=== PATIENT | male | born 1945 | race Caucasian/White ===

== ENCOUNTER 2017-06-26 05:47 | Day surgery (SDC) | payer BC ==
[2017-06-26] MEDS ORDERED: Sodium Chloride 0.9% 10 ML ONE (06:25)
[2017-06-26] MEDS ORDERED: Thrombin 5000 UNITS/5 ML VIAL ONE ×2 (06:25→10:49)
[2017-06-26 06:44] LABS: #Basophils 0.1 thou/uL (0.0-0.2); #Eosinphils 0.2 thou/uL (0.0-0.7); #Lymphocytes 2.2 thou/uL (1.20-3.40); #Monocytes 0.4 thou/uL (0.11-0.59); #Neutrophils 3.3 thou/uL (1.40-6.50); %Basophils 1.1 % (0.0-1.0); %Eosinophils 2.8 % (0.0-10.0); %Lymphocytes 35.6 % (21.0-51.0); %Monocytes 7.1 % (0.0-10.0); Hematocrit 37.1 % (42.0-52.0); Mean Platelet Volume 9.3 fL (7.4-10.4); White Blood Cell (WBC) Count 6.2 thou/uL (4.8-10.8)
[2017-06-26 06:49] LABS: PTT 28.4 SEC (22.9-36.1); Prothrombin Time 13.7 SEC (12.0-14.7)
[2017-06-26 07:00] LABS: Anion Gap 13 mmol/L (10-20); BUN (Urea Nitrogen) 30 mg/dL (8.4-25.7); Calc. Creatinine Clearance 89 mL/min (70-130); Calcium 9.2 mg/dL (7.8-10.44); Carbon Dioxide 23 mmol/L (23-31); Chloride 111 mmol/L (98-107); Estimated GFR-MDRD 44
[2017-06-26] MEDS ORDERED: Fentanyl 100 MCG/2 ML VIAL ONE ×2 (07:23→12:47)
[2017-06-26] MEDS ORDERED: Glycopyrrolate 0.2 MG/ML 5 ML SYRINGE ONE (07:41)
[2017-06-26] MEDS ORDERED: Propofol 200 MG/20 ML VIAL ONE (07:41)
[2017-06-26] MEDS ORDERED: ePHEDrine/0.9% NaCl/PF SYRINGE 50 mg/10 ml ONE (07:41)
[2017-06-26] MEDS ORDERED: Dexamethasone 20 MG/5 ML VIAL ONE (07:41)
[2017-06-26] MEDS ORDERED: PHENYLEPHRINE-NS 100 MCG/ML 10 ML SYRINGE ONE (07:41)
[2017-06-26] MEDS ORDERED: Ondansetron HCl/PF 4 MG/2 ML Vial ONE (07:41)
[2017-06-26] MEDS ORDERED: Lidocaine 2% PF 10 ML AMP (For Epidural Use) ONE (07:41)
--- NOTE | 2017-06-26 10:01 | EKG ---
Test Reason : PREOP Blood Pressure : / mmHG Vent. Rate : 052 BPM Atrial Rate : 052 BPM P-R Int : 242 ms QRS Dur : 122 ms QT Int : 462 ms P-R-T Axes : 064 -20 -10 degrees QTc Int : 429 ms Sinus bradycardia with 1st degree A-V block RSR' or QR pattern in V1 suggests right ventricular conduction delay Left ventricular hypertrophy with QRS widening Nonspecific T wave abnormality Abnormal ECG No previous ECGs available Confirmed by LINDA BECKFORD ([id number]) on 06/26/2017 10:01:28 AM Referred By: ZOE Confirmed By:LINDA BECKFORD
[2017-06-26] MEDS ORDERED: Ondansetron HCl/PF 4 MG/2 ML Vial IVP PRN ×2 (11:56→19:16)
[2017-06-26] MEDS ORDERED: Promethazine HCl 25 MG/ML VIAL SLOW IVP PRN (11:56)
[2017-06-26] MEDS ORDERED: Promethazine HCl 25 MG/ML VIAL IM PRN ×2 (11:56→12:20)
[2017-06-26] MEDS ORDERED: Meperidine HCl/PF 25 MG/ML VIAL SLOW IVP PRN (11:56)
[2017-06-26] MEDS ORDERED: HYDROmorphone 2 MG/ML VIAL SLOW IVP PRN (11:56)
[2017-06-26] MEDS ORDERED: Milk Of Magnesia 30 ML UDCUP PO PRN (12:20)
[2017-06-26] MEDS ORDERED: Morphine Sulfate 2 MG/ML SYRINGE SLOW IVP PRN (12:20)
[2017-06-26] MEDS ORDERED: Fleet Enema 133 ML BOT PR PRN (12:20)
[2017-06-26] MEDS ORDERED: Acetaminophen 325 MG TAB PO PRN (12:20)
[2017-06-26] MEDS ORDERED: Acetaminophen/Codeine 30-300mg Tablet PO PRN (12:20)
[2017-06-26] MEDS ORDERED: Bisacodyl 10 MG SUPP PR PRN (12:20)
[2017-06-26] MEDS ORDERED: tiZANidine HCl 4 MG TAB PO PRN (12:20)
[2017-06-26] MEDS ORDERED: traMADol HCl 50 MG TAB PO PRN (12:20)
[2017-06-26] MEDS ORDERED: Mag-Al 1200 mg/1200 mg/30 ML UDCUP PO PRN (12:20)
[2017-06-26 14:32] VITALS: BMI 52.4
[2017-06-26] MEDS: Sodium Chloride 0.9% 1,000 ML IV SCH (14:55)
--- NOTE | 2017-06-26 17:35 | OP ---
OR: 11 WOUND TYPE: Type 1 wound. SURGEON: Raj Chiu M.D. CARD BRUSHER: Juan Newell PA-C. 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 POSTPROCEDURE DIAGNOSES: Multilevel lumbar stenosis with epidural lipomatosis and lumbar synovial c yst. COMORBIDITIES: Obesity, diabetes mellitus, renal insufficiency, coronary artery disease. PROCEDURES: 1. L1-L2, L2-L3, L3-L4 laminectomies, partial facetectomies and foraminotomies. 2. L5-S1 laminectomy, partial facetectomy, and foraminotomies. 3. L4-L5 laminectomy for removal of synovial cyst. PROCEDURE IN DETAIL: After informed consent was obtained from the patient, the patient brought to O R 11. Proper patient pause and identification was carried out. She was positioned prone on the ope rating room table and all appropriate points were padded. Midline linear patel was made from L1 all the way down to S1. Despite the patient's body habitus, we were able to get satisfactory padding an d protection of pressure points. This area was sterilely cleansed, prepared, and draped and proper patient pause and identification was carried out. The wound was then opened with a combination of s harp, monopolar and blunt dissection, and the L1, L2, L3, L4, L5, and S1 dorsal spines and lamina we re exposed. Localization film confirmed our area of interest. We then performed L1, L2, L3 and L4 laminectomies, partial facetectomies and foraminotomies. We also performed L5-S1 laminectomies, par tial facetectomies and foraminotomies. We then performed an L4-L5 laminectomy, partial facetectomy, and foraminotomies with removal of the left greater than right synovial cyst. We are satisfied wit h our decompression. There was no spinal fluid leak. Hemostasis was a bit challenging given the amndeep valenzuela's body habitus and the vascularity at times of the epidural lipomatosis, but I was satisfied w ith the hemostasis. There was no spinal fluid leak. Copious irrigation occurred throughout. The w ound was then closed over a drain. The patient then emerged from anesthesia.
[2017-06-26] MEDS ORDERED: Ondansetron ODT 4 MG TAB PO PRN (19:16)
[2017-06-26] MEDS ORDERED: HumaLOG 300 UNITS/3 ML VIAL SC PRN ×2 (19:16)
[2017-06-26] MEDS ORDERED: Dextrose 50% Abboject 50 ML SYRINGE SLOW IVP PRN (19:16)
[2017-06-26] MEDS ORDERED: Dextrose 5% in Water 1,000 ML IV PRN (19:16)
[2017-06-26] MEDS ORDERED: cloNIDine HCl 0.1 MG TAB PO PRN (19:16)
--- NOTE | 2017-06-26 19:16 | PDOC.PN ---
- Subjective Encounter Start Date: 06/26/17 Encounter Start Time: 19:00 Subjective: Consulted for HTN mgmt post L-spine laminectomy. Post-op pain noted -: with associated elevated BP. Reviewed all meds, hx and labs. - Objective MAR Reviewed: Yes Vital Signs & Weight: Vital Signs (12 hours) Temp Pulse Resp BP Pulse Ox 06/26/17 15:11 97.6 F 52 L 16 161/70 H 96 06/26/17 14:47 97.4 F L 51 L 16 06/26/17 14:10 97.4 F L 51 L 16 187/78 H 96 Weight Weight 325 lb I&O: 06/25/17 06/26/17 06/27/17 06:59 06:59 06:59 Intake Total 480 Output Total 50 Balance 430 Result Diagrams: 06/26/17 06:31 06/26/17 06:31 Additional Labs: Accuchecks 06/26/17 17:26 POC Glucose 251 H EKG Reviewed by me: Yes (06/26/17 - Sinus bradycardia, no acute changes) Phys Exam - Physical Examination Constitutional: NAD HEENT: PERRLA, oral pharynx no lesions Neck: no JVD, supple Respiratory: no wheezing, clear to auscultation bilateral Cardiovascular: RRR Gastrointestinal: soft, non-tender, no distention, positive bowel sounds Musculoskeletal: no edema, pulses present Neurological: normal sensation, moves all 4 limbs Psychiatric: A&O x 3 Deviation from normal: surgical dressing in place L-spine, OLGA drain in place Skin: normal turgor, cap refill <2 seconds Dx/Plan (1) HTN (hypertension) Code(s): I10 - ESSENTIAL (PRIMARY) HYPERTENSION Status: Chronic Qualifiers: Hypertension type: essential hypertension Qualified Code(s): I10 - Essential (primary) hypertension Comment: Stable currently, resume home BP regimen with Olmesartan, Lasix and Norvasc, PRN Hydralazine and Clonidine (2) DM II (diabetes mellitus, type II), controlled Code(s): E11.9 - TYPE 2 DIABETES MELLITUS WITHOUT COMPLICATIONS Status: Chronic Comment: Resume home Levemir, ISS, accuchecks (3) CKD (chronic kidney disease) stage 3, GFR 30-59 ml/min Code(s): N18.3 - CHRONIC KIDNEY DISEASE, STAGE 3 (MODERATE) Status: Chronic Comment: Avoid nephrotoxic meds and contrast media, repeat creatinine in am (4) Status post lumbar laminectomy Code(s): Z98.890 - OTHER SPECIFIED POSTPROCEDURAL STATES Status: Acute Comment: Pain control, DVT ppx, PT - Plan PT/OT, school social worker, respiratory therapy, incentive spirometry, DVT proph w/ SCDs Stable currently -: Resume home BP regimen -: PRN Hydralazine and Clonidine -: ISS for reflexive glucose control -: AM lab: BMP, H/H * Thank you for the consult, will continue to follow with primary service.
[2017-06-26] MEDS ORDERED: Non-Formulary Item 1 EACH (Insulin Glargine,Hum.Rec.Anlog 30 UNITS) SC SCH (21:00)
[2017-06-26] MEDS: Pioglitazone HCl 45 MG TAB PO SCH (21:04)
[2017-06-26] MEDS: Atorvastatin Calcium 20 MG TAB PO SCH (21:04)
[2017-06-26] MEDS: Fenofibrate Nanocrystallized 145 MG TAB PO SCH (21:04)
[2017-06-26] MEDS: Insulin Detemir 100 UNITS/ML 30 UNITS in Pre-Filled Syringe SC SCH (21:05)
[2017-06-26] MEDS: HYDROcodone/Acetaminophen 7.5/325 mg Tablet PO PRN (21:06)
[2017-06-27] MEDS: Sodium Chloride 0.9% 1,000 ML IV SCH ×2 (02:39→17:12)
[2017-06-27] MEDS: HYDROcodone/Acetaminophen 7.5/325 mg Tablet PO PRN ×5 (03:14→20:40)
[2017-06-27 04:31] LABS: Hematocrit 32.7 % (42.0-52.0)
[2017-06-27 04:50] LABS: Anion Gap 13 mmol/L (10-20); BUN (Urea Nitrogen) 34 mg/dL (8.4-25.7); Calc. Creatinine Clearance 80 mL/min (70-130); Calcium 8.8 mg/dL (7.8-10.44); Carbon Dioxide 23 mmol/L (23-31); Chloride 108 mmol/L (98-107); Estimated GFR-MDRD 37
[2017-06-27] MEDS: Alogliptin Benzoate 25 MG TABLET PO SCH (08:59)
[2017-06-27] MEDS ORDERED: AMLODIPINE BES PO SCH (09:00)
[2017-06-27] MEDS: Nebivolol HCl 5 MG TAB PO SCH (09:00)
[2017-06-27] MEDS ORDERED: OLMESARTAN MED PO SCH (09:00)
[2017-06-27] MEDS: Furosemide 40 MG TAB PO SCH (09:01)
[2017-06-27] MEDS: glipiZIDE 5 MG TAB PO SCH (09:01)
--- NOTE | 2017-06-27 09:17 | PRG ---
DATE OF SERVICE: 06/27/2017 Mr. Cooper is postoperative day 1 from multilevel lumbar decompression and lumbar synovial cystectom y. His leg pain has resolved. As expected, he has low back pain. I did discuss with him his body habitus and the need to reduce his body weight to maximize his outcome both in the short and long-te rm. He has good strength in his lower extremities. His drain output has been over 100 mL. His hem oglobin is just over 10 today. We will mobilize him today.
--- NOTE | 2017-06-27 12:44 | PDOC.PN ---
- Subjective Encounter Start Date: 06/27/17 Encounter Start Time: 12:15 Subjective: f/u for HTN. Overall BP trend is stable. No new complaints other than -: back pain. - Objective MAR Reviewed: Yes Vital Signs & Weight: Vital Signs (12 hours) Temp Pulse Pulse Resp BP BP Pulse Ox 06/27/17 09:50 60 164/72 H 06/27/17 09:01 97.2 F L 56 L 20 06/27/17 07:38 97.2 F L 56 L 20 138/65 98 06/27/17 03:10 97.9 F 60 20 138/66 98 Weight Weight 325 lb I&O: 06/26/17 06/27/17 06/28/17 06:59 06:59 06:59 Intake Total 1240 Output Total 150 30 Balance 1090 -30 Result Diagrams: 06/27/17 03:43 06/27/17 03:43 Additional Labs: Accuchecks 06/27/17 06/27/17 06/26/17 11:03 06:17 21:03 POC Glucose 162 H 182 H 238 H 06/26/17 17:26 POC Glucose 251 H EKG Reviewed by me: Yes (Tele - SR in 70's) Phys Exam - Physical Examination Constitutional: NAD HEENT: PERRLA, oral pharynx no lesions Neck: no JVD, supple Respiratory: no wheezing, clear to auscultation bilateral Cardiovascular: RRR Gastrointestinal: soft, non-tender, no distention, positive bowel sounds Musculoskeletal: no edema, pulses present Neurological: normal sensation, moves all 4 limbs Psychiatric: A&O x 3 Skin: normal turgor, cap refill <2 seconds Dx/Plan (1) HTN (hypertension) Code(s): I10 - ESSENTIAL (PRIMARY) HYPERTENSION Status: Chronic Qualifiers: Hypertension type: essential hypertension Qualified Code(s): I10 - Essential (primary) hypertension Comment: Stable currently, resume home BP regimen with Olmesartan, Lasix and Norvasc, PRN Hydralazine and Clonidine (2) DM II (diabetes mellitus, type II), controlled Code(s): E11.9 - TYPE 2 DIABETES MELLITUS WITHOUT COMPLICATIONS Status: Chronic Comment: Resume home Levemir, ISS, accuchecks (3) CKD (chronic kidney disease) stage 3, GFR 30-59 ml/min Code(s): N18.3 - CHRONIC KIDNEY DISEASE, STAGE 3 (MODERATE) Status: Chronic Comment: Avoid nephrotoxic meds and contrast media, repeat creatinine in am (4) Status post lumbar laminectomy Code(s): Z98.890 - OTHER SPECIFIED POSTPROCEDURAL STATES Status: Acute Comment: Pain control, DVT ppx, PT - Plan PT/OT, out of bed/ambulate, DVT proph w/SCDs Stable overall -: continue home BP regimen -: Avoid nephrotoxic meds and contrast media -: Mobilize with PT -: Pain control * Will sign off, call prn
[2017-06-27] MEDS: Atorvastatin Calcium 20 MG TAB PO SCH (20:40)
[2017-06-27] MEDS: Pioglitazone HCl 45 MG TAB PO SCH (20:40)
[2017-06-27] MEDS: Fenofibrate Nanocrystallized 145 MG TAB PO SCH (20:40)
[2017-06-27] MEDS: Insulin Detemir 100 UNITS/ML 30 UNITS in Pre-Filled Syringe SC SCH (22:50)
[2017-06-28] MEDS: HYDROcodone/Acetaminophen 7.5/325 mg Tablet PO PRN ×3 (02:38→10:22)
[2017-06-28 08:25] VITALS: BP 142/64; TEMP 98.7
[2017-06-28] MEDS ORDERED: Nitrofurantoin Monohyd/M-Cryst 100 MG CAP PO SCH (09:00)
[2017-06-28] MEDS: Alogliptin Benzoate 25 MG TABLET PO SCH (09:01)
[2017-06-28] MEDS: Furosemide 40 MG TAB PO SCH (09:02)
[2017-06-28] MEDS: glipiZIDE 5 MG TAB PO SCH (09:02)
[2017-06-28] MEDS: Nebivolol HCl 5 MG TAB PO SCH (09:02)
--- NOTE | 2017-06-28 14:19 | PRG ---
DATE OF SERVICE: 06/28/2017 SUBJECTIVE: Mr. Cooper is postoperative day #2 multilevel lumbar laminectomy and synovial cystectom y. He has no leg pain. He is doing well in regards to his mobilization with some improvement in hi s back pain related to the surgery. I am pleased with how Mr. Cooper is doing. His drain output barragan s diminished. Neurologically, he continues to do well. I will dismiss him. We went over postopera tive issues in followup.
== END 2017-06-28 11:04 | disposition home or self-care (01) ==
LOC: SDC 05:47 → 2SW 12:18 → SDC 06-28 11:04
PROVIDERS: ATTEND Surgery
PROC: 00NY0ZZ Release Lumbar Spinal Cord, Open Approach (ICD-10-PCS; principal; 2017-06-28)
PROC: 0QB00ZZ Excision of Lumbar Vertebra, Open Approach (ICD-10-PCS; principal; 2017-06-28)
PROC: 01NB0ZZ Release Lumbar Nerve, Open Approach (ICD-10-PCS; principal; 2017-06-28)
DX: M48.06 Spinal stenosis, lumbar region (principal); M71.38 Other bursal cyst, other site; I12.9 Hypertensive chronic kidney disease with stage 1 through stage 4 chronic kidney disease, or unspecified chronic kidney disease; E11.22 Type 2 diabetes mellitus with diabetic chronic kidney disease; N18.3 Chronic kidney disease, stage 3 (moderate); E66.9 Obesity, unspecified; N28.9 Disorder of kidney and ureter, unspecified; Z68.43 Body mass index [BMI] 50.0-59.9, adult; Z79.4 Long term (current) use of insulin; Z79.82 Long term (current) use of aspirin; Z79.2 Long term (current) use of antibiotics; Z79.899 Other long term (current) drug therapy; Z99.89 Dependence on other enabling machines and devices; Z90.49 Acquired absence of other specified parts of digestive tract; Z90.89 Acquired absence of other organs
CPT/HCPCS: 36415; 36416; 76001; 80048; 85014; 85018; 85025; 85049; 85610; 85730; 90471; 90732; 93005; 93010; 96374; A4216; G0009; G8978-GP-CL; G8979-GP-CJ; J0131; J1100; J1170; J1815; J2001; J2270; J2405; J2704; J3010; J3370; J3490; Q0162

== ENCOUNTER 2019-02-27 10:44 | Inpatient (IN) | payer OTHER, MEDICARE ==
--- NOTE | 2019-02-27 11:56 | RAD ---
Exam: Chest 2 views HISTORY:Dyspnea Comparison: None FINDINGS: Lungs: No masses or consolidation. Cardiac silhouette:Enlarged cardiac silhouette Pulmonary vessels: Mild engorgement, centrally Pleural Spaces: Clear Pneumothorax: None Osseous abnormalities: None of acuity. IMPRESSION: CHF
[2019-02-27 12:02] LABS: Hemoglobin 12.2 g/dL (14.0-18.0); Mean Corpuscular HGB CONC 32.7 g/dL (32.0-36.0); Mean Corpuscular Hemoglobin 31.2 pg (27.0-31.0); Mean Corpuscular Volume 95.2 fL (78.0-98.0); Mean Platelet Volume 9.7 fL (7.4-10.4); Platelet Count 184 thou/uL (130-400); RBC Distribution Width 13.1 % (11.5-14.5); Red Blood Cell (RBC) Count 3.93 mill/uL (4.70-6.10)
[2019-02-27 12:11] LABS: ALT (SGPT) 19 U/L (8-55); AST (SGOT) 25 U/L (5-34); Albumin 3.6 g/dL (3.4-4.8); Alkaline Phosphatase 41 U/L (40-150); Anion Gap 14 mmol/L (10-20); BUN (Urea Nitrogen) 21 mg/dL (8.4-25.7); Bilirubin, Total 0.7 mg/dL (0.2-1.2); Calc. Creatinine Clearance 0 mL/min (70-130); Calcium 9.5 mg/dL (7.8-10.44); Carbon Dioxide 23 mmol/L (23-31); Chloride 109 mmol/L (98-107); Estimated GFR-MDRD 50; Globulin 2.8 g/dL (2.4-3.5); Glucose 174 mg/dL (83-110); Potassium 4.6 mmol/L (3.5-5.1); Protein, Total 6.4 g/dL (5.8-8.1); Sodium 141 mmol/L (136-145)
[2019-02-27 12:12] LABS: Band 2 % (5-11); Eosinophils 4 % (0-10); Lymphocytes 39 % (21-51); MDiff Complete? YES; Monocytes 3 % (0-10); Neutrophil 49 % (42-75); RBC Morphology Normal; Reactive Lymphocytes 1 % (0-10); White Blood Cell (WBC) Count 5.8 thou/uL (4.8-10.8)
[2019-02-27] MEDS ORDERED: Nitroglycerin 2% Ointment 1 INCH/1 GM Packet ONE (13:13)
[2019-02-27] MEDS ORDERED: Furosemide 40 MG/4 ML VIAL ONE (13:13)
[2019-02-27] MEDS ORDERED: Dextrose 5% in Water 1,000 ML IV PRN (13:39)
[2019-02-27] MEDS ORDERED: Nitroglycerin 0.4 MG TAB (25 Tab Bottle) PO PRN (13:39)
[2019-02-27] MEDS ORDERED: Dextrose 50% Abboject 50 ML SYRINGE SLOW IVP PRN (13:39)
[2019-02-27] MEDS ORDERED: Aspirin 325 mg Enteric Coated Tablet PO SCH (14:00)
[2019-02-27] MEDS ORDERED: hydrALAZINE 20 MG/ML VIAL ONE (14:14)
--- NOTE | 2019-02-27 14:28 | HP ---
PRIMARY CARE PROVIDER: Dr. Edin Petty. HISTORY OF PRESENT ILLNESS: The patient referred to [facility] by PCP. The patient had shortness of breath this morning. No orthopnea. He has pressure in his chest with walking goes away after 5 to 10 minutes of rest, started about 24 hours ago. He has shortness of breath with a tightness, but no sweats or nausea. PAST MEDICAL HISTORY: Pertinent for hypertension, diabetes mellitus type 2, and dyslipidemia. MEDICATIONS: He takes: 1. Glipizide 5 b.i.d. 2. Protonix 40 a day. 3. Amlodipine/olmesartan 5/20 half tablet daily. 4. Onglyza 2.5 mg a day. 5. Lasix 40 mg a day. 6. Bystolic 10 mg a day. 7. Pioglitazone 45 mg a day. 8. Lipitor 20 mg a day. 9. Fenofibrate 150 mg a day. 10. Levemir 44 units at bedtime. 11. Aspirin 81 mg a day. ALLERGIES: NO MEDICAL ALLERGIES. PAST SURGICAL HISTORY: L-spine surgery 2 years ago, cholecystectomy in the distant past, tonsillectomy 200/85. FAMILY HISTORY: Mother is , had atrial fib and diabetes late in life. Father is , had diabetes late in life. . at bedside. Full code status. is surrogate decision maker. No tobacco. Very occasional alcohol. REVIEW OF SYSTEMS: GENERAL: No headaches, dizziness, or fainting. EYES: No double vision, blurred vision, or flashing lights. EAR, NOSE, AND THROAT: No ear pain or drainage. No nasal bleeding. No trouble swallowing. CARDIAC: See present illness. RESPIRATIONS: No cough, wheezing, or asthma. GASTROINTESTINAL: Occasional loose stools. No nausea, vomiting, abdominal pain , or melena. GENITOURINARY: No hematuria or dysuria. MUSCULOSKELETAL: His legs swell a bit in the ankles. No pains in his muscles or joints. NEUROLOGIC: No strokes seizures or focal weakness. PSYCHIATRIC: No anxiety or depression. HEME/LYMPH: No tender or swollen lymph nodes in his neck, arms, or groin. SKIN: He bruises easily. No rash. PHYSICAL EXAMINATION: GENERAL: He is alert, very pleasant gentleman, in no distress, lying there, room air sat 93% to 94%, blood pressure elevated at 200/85, pulse 50 to 58, and respirations 16 to 22. HEENT: Examination of his head, eyes, ears, nose, and throat revealed pupils are equal, round, and reactive to light. Extraocular movements are intact. Sclerae are white. Tympanic membranes are clear. Nose is clear. Oral mucous membranes are wet. NECK: No jugular venous distention, adenopathy or thyromegaly. CHEST: Clear to auscultation and percussion. HEART: Regular rate and rhythm. First and second heart sounds are clear. There are no murmurs or gallops. ABDOMEN: Soft. Bowel sounds are normal. There is no hepatosplenomegaly. No mass. No rebound. No bruits. EXTREMITIES: Reveal trace edema with no cyanosis or clubbing. PULSES: Carotid, radial, femoral, and dorsalis pedis pulses intact. SKIN: Warm and dry without bruises or rash. HEME/LYMPH: No tender or swollen lymph nodes in axilla, inguinal, or cervical area. DIAGNOSTIC DATA: EKG, regular sinus rhythm with right bundle branch block reviewed by me. Chest x-ray, borderline cardiomegaly with no CHF, reviewed by me. This is in contradiction to the radiologist who suggested CHF. I see no evidence of it when I review the films. LABORATORY DATA: Comprehensive metabolic profile; creatinine 1.41, BUN 21, blood sugar 174. Liver profile normal. Electrolytes balanced except for 109 chloride. CBC; 5.8 white cells, 12.2 hemoglobin, and platelet count 184,000. ADMITTING DIAGNOSES: 1. Angina. 2. Diabetes mellitus type 2 with chronic kidney disease 3. 3. Hypertension. 4. Dyslipidemia. PLAN: 1. Serial enzymes. 2. Aspirin has already been given. 3. Cardiac stress test in the morning. 4. Continue home medicines. 5. AC and HS Accu-Cheks and has moderate sliding scale. Job ID: [id number] [facility]
[2019-02-27 15:26] LABS: Troponin I 0.042 ng/mL (< 0.028)
[2019-02-27] MEDS ORDERED: traMADol HCl 50 MG TAB PO PRN (15:50)
[2019-02-27 16:29] VITALS: BMI 51.0
[2019-02-27 17:34] LABS: Troponin I 0.035 ng/mL (< 0.028)
[2019-02-27] MEDS: Pioglitazone HCl 45 MG TAB PO SCH (20:05)
[2019-02-27] MEDS: Atorvastatin Calcium 20 MG TAB PO SCH (20:05)
[2019-02-27] MEDS: HumaLOG 300 UNITS/3 ML VIAL SC PRN (21:02)
[2019-02-28] MEDS ORDERED: Pseudoephedrine HCl 30 MG TAB PO SCH (01:00)
[2019-02-28 06:30] LABS: Cardiac Risk 3.3 (Less than 4.5)
[2019-02-28] MEDS ORDERED: Furosemide 40 MG TAB PO SCH (09:00)
[2019-02-28] MEDS ORDERED: OLMESARTAN MED PO SCH (09:00)
[2019-02-28] MEDS ORDERED: Enoxaparin Sodium 40 MG/0.4 ML SYRINGE SC SCH ×3 (09:00→21:00)
[2019-02-28] MEDS ORDERED: AMLODIPINE BES PO SCH (09:00)
[2019-02-28] MEDS ORDERED: Prevnar 13-Val Conj/PF 0.5 ML SYRINGE IM ONE (09:00)
[2019-02-28] MEDS ORDERED: Aspirin 325 mg Enteric Coated Tablet PO SCH (09:00)
[2019-02-28] MEDS: glipiZIDE 5 MG TAB PO SCH (09:06)
[2019-02-28] MEDS: Amlodipine 5 MG TAB PO SCH (09:06)
[2019-02-28] MEDS: Alogliptin 25 MG TAB PO SCH (09:07)
[2019-02-28] MEDS ORDERED: Regadenoson 0.4 MG/5 ML SYRINGE ONE (10:27)
[2019-02-28] MEDS ORDERED: Iopamidol 370 76% 100 ML VIAL ONE (10:45)
--- NOTE | 2019-02-28 10:48 | NM ---
Nuclear medicine Cardiac myocardial perfusion SPECT Ejection fraction study Wall motion cine: DATE: 02/28/2019 HISTORY: 73-year-old male with hypertension, diabetes mellitus, and dyslipidemia, presents with chest pain TECHNIQUE: Number of days:2 Rest study: Technetium 99m-sestamibi (Cardiolite) dose:28.9 mCi Pharmacologic stress: Lexiscan dose:0.4 mg Stress study: Technetium 99m-sestamibi (Cardiolite) dose:31.7 mCi FINDINGS: Cardiac (myocardial perfusion) SPECT There are no fixed or reversible myocardial perfusion defects. Ejection fraction study Left ventricular EF = 80% Wall motion cine Normal IMPRESSION: Normal
[2019-02-28] MEDS ORDERED: Enoxaparin Sodium 100 MG/ML SYRINGE SC SCH (12:00)
[2019-02-28] MEDS: HumaLOG 300 UNITS/3 ML VIAL SC PRN ×3 (12:13→21:13)
[2019-02-28] MEDS: Nebivolol HCl 5 MG TAB PO SCH (12:13)
[2019-02-28] MEDS: Sodium Chloride 0.9% 1,000 ML IV SCH ×2 (12:13→17:15)
--- NOTE | 2019-02-28 13:38 | CT ---
CT PULMONARY ANGIOGRAM WITH IV CONTRAST AND 3D POST PROCESSIN02/28/19 HISTORY: Shortness of breath and elevated D-dimer. FINDINGS: There is good opacification of the pulmonary artery vasculature with filling defects in the distal ri ght pulmonary artery, upper and lower right sided branches and the left lower lobe branches consisten t with bilateral pulmonary embolism. The thoracic aorta is well opacified without aneurysm or dissection. No pleural or pericardial effusi ons are seen. No pneumothoraces, focal areas of consolidation, masses/nodules are identified. There are degenerative changes in the spine. IMPRESSION: Bilateral pulmonary embolism. The report was called over the telephone to the patient's nurse, Zulma Wood at 11:26 a.m. POS: [facility]
--- NOTE | 2019-02-28 13:42 | PDOC.PN ---
- Subjective Encounter Start Date: 02/28/19 Encounter Start Time: 13:40 Patient sitting up in bed with at bedside, he reports feeling better today. Stress test was normal, however d-dimer was elevated so CTA was ordered and showed bilateral PEs. He denies chest pain, palpitations, shortness of breath, he remains hemodynamically stable - Objective Resuscitation Status - Order Detail: 02/27/19 13:30 Resuscitation Status Routine Resuscitation Status: FULL: Full Resuscitation MAR Reviewed: Yes Vital Signs & Weight: Vital Signs (12 hours) Temp Pulse Resp BP Pulse Ox 02/28/19 12:15 94 L 02/28/19 11:30 97.8 F 98 20 158/65 H 94 L 02/28/19 07:45 98.3 F 70 20 160/70 H 93 L Weight Weight 316 lb I&O: 02/27/19 02/28/19 03/01/19 06:59 06:59 06:59 Intake Total 740 Output Total 600 Balance 140 Result Diagrams: 02/27/19 11:39 02/27/19 11:39 Additional Labs: Accuchecks 02/28/19 02/28/19 02/27/19 11:43 05:45 20:55 POC Glucose 288 H 215 H 230 H Radiology Reviewed by me: Yes Phys Exam - Physical Examination Constitutional: NAD HEENT: moist MMs, oral pharynx no lesions Neck: supple Respiratory: no wheezing, clear to auscultation bilateral Cardiovascular: RRR, no significant murmur Gastrointestinal: soft, non-tender, positive bowel sounds Musculoskeletal: no edema, pulses present Neurological: non-focal, moves all 4 limbs Lymphatic: no nodes Psychiatric: normal affect, A&O x 3 Skin: normal turgor Dx/Plan (1) Bilateral pulmonary embolism Code(s): I26.99 - OTHER PULMONARY EMBOLISM WITHOUT ACUTE COR PULMONALE Status : Acute (2) CKD (chronic kidney disease) stage 3, GFR 30-59 ml/min Code(s): N18.3 - CHRONIC KIDNEY DISEASE, STAGE 3 (MODERATE) Status: Chronic (3) DM II (diabetes mellitus, type II), controlled Code(s): E11.9 - TYPE 2 DIABETES MELLITUS WITHOUT COMPLICATIONS Status: Chronic (4) HTN (hypertension) Code(s): I10 - ESSENTIAL (PRIMARY) HYPERTENSION Status: Chronic Qualifiers: Hypertension type: essential hypertension Qualified Code(s): I10 - Essential (primary) hypertension - Plan cont current plan of care, plan discussed w/ family * Stress test negative * D-Dimer elevated, CTA ordered and showing bilateral PEs * Check lower extremity doppler and await echo * Start Lovenox 1mg/kg and plan to transition to oral anticoagulation prior to discharge * Continue home medications * Will transition to inpatient status due to new PEs * Disposition likely for home in the next few days
--- NOTE | 2019-02-28 15:12 | PDOC.EVN ---
Event Note - Event Note Event Note: I HAVE PERSONALLY SEEN PT AND REVIEWED CHART AND DISCUSSED CASE WITH PAINT STRIPPER AND AGREED WITH PHYSICAL FINDING AND ASSESSMENT OF PAINT STRIPPER,
--- NOTE | 2019-02-28 15:48 | ULT ---
EXAM: Bilateral lower extremity venous duplex: Deep veins evaluated with color Doppler, spectral analysis, and compression. INDICATIONS: Bilateral lower extremity pain and edema. FINDINGS: Deep veins interrogated include common femoral vein, femoral vein, popliteal vein, and post erior tibial vein. These veins show normal compression and blood flow. No evidence of DVT. IMPRESSION: Negative Bilateral venous duplex exam.
[2019-02-28] MEDS: Enoxaparin Sodium 40 MG/0.4 ML SYRINGE SC SCH (20:46)
[2019-02-28] MEDS: Enoxaparin Sodium 100 MG/ML SYRINGE SC SCH (20:46)
[2019-02-28] MEDS: Pioglitazone HCl 45 MG TAB PO SCH (20:47)
[2019-02-28] MEDS: Fenofibrate Nanocrystallized 145 MG TAB PO SCH (20:47)
[2019-02-28] MEDS: Atorvastatin Calcium 20 MG TAB PO SCH (20:47)
[2019-02-28] MEDS ORDERED: INSULIN DETEMIR 44 UNIT SQ SCH (21:00)
[2019-02-28] MEDS: INSULIN GLARGINE SC SCH (21:13)
[2019-02-28] MEDS: PRE FILLED SC SCH (21:13)
[2019-03-01 05:24] LABS: #Basophils 0.1 thou/uL (0.0-0.2); #Eosinphils 0.2 thou/uL (0.0-0.7); #Lymphocytes 2.4 thou/uL (1.20-3.40); #Monocytes 0.6 thou/uL (0.11-0.59); #Neutrophils 3.6 thou/uL (1.40-6.50); %Eosinophils 3.5 % (0.0-10.0); %Lymphocytes 35.5 % (21.0-51.0); %Monocytes 8.4 % (0.0-10.0); %Neutrophils 51.5 % (42.0-75.0); Hemoglobin 11.6 g/dL (14.0-18.0); Mean Corpuscular Volume 94.2 fL (78.0-98.0); Mean Platelet Volume 9.4 fL (7.4-10.4); Platelet Count 173 thou/uL (130-400); RBC Distribution Width 13.1 % (11.5-14.5); Red Blood Cell (RBC) Count 3.75 mill/uL (4.70-6.10); White Blood Cell (WBC) Count 6.9 thou/uL (4.8-10.8)
[2019-03-01 05:42] LABS: Anion Gap 11 mmol/L (10-20); BUN (Urea Nitrogen) 26 mg/dL (8.4-25.7); Calc. Creatinine Clearance 76 mL/min (70-130); Carbon Dioxide 27 mmol/L (23-31); Chloride 106 mmol/L (98-107); Estimated GFR-MDRD 37; Glucose 194 mg/dL (83-110); Potassium 3.6 mmol/L (3.5-5.1); Sodium 140 mmol/L (136-145)
[2019-03-01] MEDS: HumaLOG 300 UNITS/3 ML VIAL SC PRN ×4 (06:10→20:40)
[2019-03-01 06:13] LABS: INR-International Normal Ratio 1.1; PTT 50.8 SEC (22.9-36.1); Prothrombin Time 14.4 SEC (12.0-14.7)
[2019-03-01] MEDS: Sodium Chloride 0.9% 1,000 ML IV SCH (08:37)
[2019-03-01] MEDS ORDERED: Apixaban 5 MG TAB PO STA (09:31)
--- NOTE | 2019-03-01 09:34 | PDOC.PN ---
- Subjective Encounter Start Date: 03/01/19 Encounter Start Time: 09:32 Subjective: Obese male with PAUL and chronic bilateral leg edema admitted with SOB -: Found to have Bilateral PE. -: Feeling better. - Objective Resuscitation Status - Order Detail: 02/27/19 13:30 Resuscitation Status Routine Resuscitation Status: FULL: Full Resuscitation Vital Signs & Weight: Vital Signs (12 hours) Temp Pulse Resp BP BP Pulse Ox 03/01/19 07:40 97.7 F 60 18 131/76 95 03/01/19 04:00 98.2 F 56 L 20 131/56 L 92 L Weight Weight 314 lb I&O: 02/28/19 03/01/19 03/02/19 06:59 06:59 06:59 Intake Total 740 2359 Output Total 600 500 Balance 140 1859 Result Diagrams: 03/01/19 05:13 03/01/19 05:13 Additional Labs: Accuchecks 03/01/19 02/28/19 02/28/19 05:21 20:15 16:45 POC Glucose 211 H 266 H 276 H 02/28/19 11:43 POC Glucose 288 H Phys Exam - Physical Examination Constitutional: NAD morbidly obese HEENT: PERRLA, moist MMs Neck: no nodes, supple Shorth thick neck Respiratory: no wheezing, no rales, no rhonchi, clear to auscultation bilateral Cardiovascular: RRR, no significant murmur, no rub Gastrointestinal: soft, non-tender, no distention, positive bowel sounds obese Musculoskeletal: pulses present Mild bilateral leg edema noted Neurological: non-focal, moves all 4 limbs Psychiatric: A&O x 3 Dx/Plan (1) Creatinine elevation Code(s): R79.89 - OTHER SPECIFIED ABNORMAL FINDINGS OF BLOOD CHEMISTRY Status : Acute Comment: Concerning for contrast induced nephropathy given acute increase in creat and recent contrast study (2) PAUL on CPAP Code(s): G47.33 - OBSTRUCTIVE SLEEP APNEA (ADULT) (PEDIATRIC); Z99.89 - DEPENDENCE ON OTHER ENABLING MACHINES AND DEVICES Status: Acute (3) Morbid obesity Code(s): E66.01 - MORBID (SEVERE) OBESITY DUE TO EXCESS CALORIES Status: Acute (4) Acute respiratory insufficiency Code(s): R06.89 - OTHER ABNORMALITIES OF BREATHING Status: Acute Comment: Present on admission. Improved. (5) Bilateral pulmonary embolism Code(s): I26.99 - OTHER PULMONARY EMBOLISM WITHOUT ACUTE COR PULMONALE Status : Acute (6) CKD (chronic kidney disease) stage 3, GFR 30-59 ml/min Code(s): N18.3 - CHRONIC KIDNEY DISEASE, STAGE 3 (MODERATE) Status: Chronic (7) DM II (diabetes mellitus, type II), controlled Code(s): E11.9 - TYPE 2 DIABETES MELLITUS WITHOUT COMPLICATIONS Status: Chronic (8) HTN (hypertension) Code(s): I10 - ESSENTIAL (PRIMARY) HYPERTENSION Status: Chronic Qualifiers: Hypertension type: essential hypertension Qualified Code(s): I10 - Essential (primary) hypertension - Plan DC Lovenoc and start eliquis 10 mg bid. -: Continue IVF. -: DC lasix and KEERTHI edward given. -: Recheck Renal function in the am. -: Continue other treatments. * .
[2019-03-01] MEDS: glipiZIDE 5 MG TAB PO SCH (09:51)
[2019-03-01] MEDS: Nebivolol HCl 5 MG TAB PO SCH (09:51)
[2019-03-01] MEDS: Amlodipine 5 MG TAB PO SCH (09:51)
[2019-03-01] MEDS: Alogliptin 25 MG TAB PO SCH (09:52)
[2019-03-01] MEDS: Aspirin Chewable 81 MG TAB PO SCH (09:52)
[2019-03-01] MEDS: Enoxaparin Sodium 100 MG/ML SYRINGE SC SCH (09:55)
[2019-03-01] MEDS: Enoxaparin Sodium 40 MG/0.4 ML SYRINGE SC SCH (09:56)
--- NOTE | 2019-03-01 13:30 | STRESS ---
Acquisition Time: 2019-02-28 09:24:16 Total Exercise Time: 00:01:00 Test Indications: CHEST PAIN Medications: Protocol: LEXISCAN Max HR: 090 BPM 60% of Pred: 149 BPM Max BP: 172/066 mmHG Max Work Load: 1.0 METS THE PATIENT WAS INJECTED WITH LEXISCAN. HE DID NOT DEVELOP CHEST PAIN. THERE WAS NO SIGNIFICANT ST DEPRESSION. AWAIT NUCLEAR IMAGES FOR DEFINITIVE DIAGNOSIS. Confirmed by PAOLA FARLEY ([id number]), television news video editor JEFFY DE JESUS ([id number]) on 03/01/2019 1:30:12 PM Referred By: MD Iveth WETZEL Confirmed By:PAOLA FARLEY
[2019-03-01] MEDS: Apixaban 5 MG TAB PO SCH (20:39)
[2019-03-01] MEDS: Pioglitazone HCl 45 MG TAB PO SCH (20:39)
[2019-03-01] MEDS: Atorvastatin Calcium 20 MG TAB PO SCH (20:39)
[2019-03-01] MEDS: Fenofibrate Nanocrystallized 145 MG TAB PO SCH (20:39)
[2019-03-01] MEDS: INSULIN GLARGINE SC SCH (20:42)
[2019-03-01] MEDS: PRE FILLED SC SCH (20:42)
[2019-03-02 04:38] LABS: Hemoglobin A1c 9.3 % (4.0-6.0)
[2019-03-02 04:51] LABS: Anion Gap 10 mmol/L (10-20); BUN (Urea Nitrogen) 21 mg/dL (8.4-25.7); BUN/Creatinine Ratio 14.89; Calc. Creatinine Clearance 97 mL/min (70-130); Calcium 8.4 mg/dL (7.8-10.44); Carbon Dioxide 23 mmol/L (23-31); Chloride 110 mmol/L (98-107); Estimated GFR-MDRD 50; Glucose 136 mg/dL (83-110); Phosphorus 2.9 mg/dL (2.3-4.7); Potassium 3.5 mmol/L (3.5-5.1); Sodium 139 mmol/L (136-145)
[2019-03-02] MEDS: Sodium Chloride 0.9% 1,000 ML IV SCH (07:04)
[2019-03-02 07:36] VITALS: BP 160/90; TEMP 97.9
[2019-03-02] MEDS: Alogliptin 25 MG TAB PO SCH (08:55)
[2019-03-02] MEDS: Apixaban 5 MG TAB PO SCH (08:56)
[2019-03-02] MEDS: Amlodipine 5 MG TAB PO SCH (08:56)
[2019-03-02] MEDS: Nebivolol HCl 5 MG TAB PO SCH (08:58)
[2019-03-02] MEDS: glipiZIDE 5 MG TAB PO SCH (08:58)
[2019-03-02] MEDS: Aspirin Chewable 81 MG TAB PO SCH (08:58)
--- NOTE | 2019-03-03 08:13 | DIS ---
DATE OF ADMISSION: 02/27/2019 DATE OF DISCHARGE: 03/02/2019 PRIMARY CARE PHYSICIAN: Dr. Edin Petty. DISCHARGE DIAGNOSES: 1. Bilateral pulmonary embolism (acute). 2. Acute respiratory insufficiency, present on admission. 3. Acute kidney injury. 4. Chronic kidney disease, stage 3. 5. Uncontrolled type 2 diabetes mellitus. 6. Hypertension. 7. Morbid obesity. 8. Obstructive sleep apnea, on CPAP. 9. Demand ischemia of the myocardium, present on admission. HOSPITAL COURSE: A 73-year-old obese male with known history of hypertension; CKD, stage 3; and type 2 diabetes, who was admitted due to acute onset of respiratory insufficiency of difficulty breathing and shortness of breath, which was worse with exertion. The patient denied chest pain, sweats, or nausea. On presentation, he was found to have mild increase in troponin. EKG showed normal sinus rhythm with right bundle-branch block, but no obvious ischemic changes. Impression of cardiac ischemia to rule out acute DE was made. The patient was further evaluated with nuclear stress test, which was unremarkable. He, however, was found to have elevated D-dimer and was further evaluated with CT angio of the chest, which showed bilateral pulmonary embolism, hence the patient was started on anticoagulation with improvement in symptoms. Hospital course was complicated by increase in creatinine following contrast study, which was concerning for contrast-induced nephropathy. The patient was treated with IV fluid with decrease in creatinine to baseline levels. Hence, he was felt that the increase in creatinine was fairly due to hemodynamic factors, not contrast-induced nephropathy. The patient also was found to have uncontrolled diabetes, hence long-acting insulin Levemir was increased from 44 to 50. Of note, hemoglobin A1c was 9.3. The patient remained stable and was subsequently discharged home to follow with the primary care physician. PHYSICAL EXAMINATION: VITAL SIGNS: Temperature 97.9, pulse 67, respiratory rate 22, SpO2 of 98 on room air, and blood pressure 160/90. GENERAL: Obese male, in no distress. Afebrile. Anicteric. Acyanotic. CARDIOVASCULAR: Regular rhythm and rate with normal heart sounds 1 and 2. No murmur was appreciated. RESPIRATORY: Good air entry bilaterally with no obvious crackle or rhonchi or use of accessory muscles. GASTROINTESTINAL: Abdomen is full, soft, nontender, nondistended with normal bowel sounds. EXTREMITIES: Grossly normal looking atraumatic with no obvious edema, erythema, or cyanosis. Distal pulses are palpable. NEUROLOGIC: Conscious and alert and oriented x3 with appropriate mental status. Cranial nerves II through XII are intact. The patient is ambulant. DISCHARGE MEDICATIONS: 1. Amlodipine/olmesartan half tablet p.o. daily. 2. Aspirin 81 mg p.o. daily. 3. Lipitor 20 mg p.o. daily at bedtime. 4. Fenofibrate 150 mg p.o. daily at bedtime. 5. Lasix 40 mg daily. 6. Glipizide 5 mg p.o. b.i.d. 7. Nebivolol 10 mg p.o. daily. 8. Protonix 40 mg p.o. daily. 9. Pioglitazone 45 mg p.o. daily at bedtime. 10. Saxagliptin 2.5 mg p.o. daily. 11. Eliquis 10 mg p.o. daily for 6 days. 12. Eliquis 5 mg p.o. b.i.d. after 10 mg tablets. 13. Levemir 50 mg p.o. daily at bedtime. FOLLOWUP: The patient is to follow up with PCP in 1 week. Of note, the patient had echocardiogram, but the results of that is awaited at this time. DISCHARGE DISPOSITION: Home. DISCHARGE CONDITION: Improved. TIME SPENT: This discharge took more than 36 minutes. Job ID: [id number]
== END 2019-03-02 11:20 | disposition home or self-care (01) | DRG 176 ==
LOC: ERS 10:44 → 2SW 14:24 → OBSVTOIN 14:24 → 2NO 02-28 17:09
PROVIDERS: ADMIT Internal Medicine; ATTEND Internal Medicine
DX: I26.99 Other pulmonary embolism without acute cor pulmonale (principal); I24.8 Other forms of acute ischemic heart disease; Z68.43 Body mass index [BMI] 50.0-59.9, adult; E78.5 Hyperlipidemia, unspecified; E11.22 Type 2 diabetes mellitus with diabetic chronic kidney disease; N18.3 Chronic kidney disease, stage 3 (moderate); I12.9 Hypertensive chronic kidney disease with stage 1 through stage 4 chronic kidney disease, or unspecified chronic kidney disease; G47.33 Obstructive sleep apnea (adult) (pediatric); E66.01 Morbid (severe) obesity due to excess calories; R06.89 Other abnormalities of breathing; Z79.82 Long term (current) use of aspirin; Z79.84 Long term (current) use of oral hypoglycemic drugs; Z90.49 Acquired absence of other specified parts of digestive tract; N14.1 Nephropathy induced by other drugs, medicaments and biological substances; T50.8X5A Adverse effect of diagnostic agents, initial encounter
CPT/HCPCS: 36415; 36416; 71046; 71275; 78452; 80048; 80053; 80061; 80069; 83036; 83880; 84484; 85025; 85379; 85610; 85730; 90471; 90670; 93005; 93017; 93306; 93970; 94760; 96374; 96375; A9500; G0009; J0360; J1650; J1825; J1940; J2785; Q9967

== ENCOUNTER 2020-04-16 06:36 | Outpatient (CLI) | payer OTHER ==
[2020-04-17 12:16] LABS: SARS-CoV-2 MS2 Positive; SARS-CoV-2 N Gene Negative; SARS-CoV-2 S Gene Negative; SARS-CoV-2 orf1ab Negative
== END 2020-04-16 06:37 | disposition home or self-care (01) ==
LOC: LABBT 06:36
PROVIDERS: ATTEND Internal Medicine Gastroenterology
DX: Z48.812 Encounter for surgical aftercare following surgery on the circulatory system (principal); Z11.59 Encounter for screening for other viral diseases; Z12.11 Encounter for screening for malignant neoplasm of colon
CPT/HCPCS: 87635; U0003

== ENCOUNTER 2020-04-19 07:57 | Day surgery (SDC) | payer OTHER ==
[2020-04-14 10:09] VITALS: BMI 54.5
--- NOTE | 2020-04-19 11:53 | OP ---
DATE OF PROCEDURE: 04/19/2020 PREPROCEDURE DIAGNOSIS: Colorectal cancer screening. POSTPROCEDURE DIAGNOSES: 1. Two small polyps removed from the descending and sigmoid colon and submitted to Pathology. 2. Diverticulosis coli, sigmoid colon. 3. Otherwise normal colonoscopy. RECOMMENDATIONS: Await histopathology. Future colonoscopy is determined by adenoma of pathology. PROCEDURE IN DETAIL: After the patient was informed of the risk, benefits, and possible complication of endoscopy including perforation, reaction to medication, aspiration, informed consent was obtained. The patient was brought to the endoscopy suite, where he was sedated in gradual fashion. Once he was comfortably sedated, a rectal examination was performed, which was normal. The endoscope was advanced through the anal canal from the colon to the cecum, which was identified by ileocecal valve and the appendiceal orifice. The scope was then slowly removed. The prep was good. There was diverticulosis in the left colon. There were two polyps removed, one in the descending, one in the sigmoid. These were 3 to 5 mm in size and sessile and removed by cold snare polypectomy. The specimens were submitted to Pathology. Retroflexed views were normal. The scope was removed. The patient tolerated the procedure well. There were no complications. Job ID: [id number]
== END 2020-04-19 11:45 | disposition home or self-care (01) ==
LOC: SDC 07:57
PROVIDERS: ATTEND Internal Medicine Gastroenterology
PROC: 0DBN8ZZ Excision of Sigmoid Colon, Via Natural or Artificial Opening Endoscopic (ICD-10-PCS; principal; 2020-04-19)
PROC: 0DBM8ZZ Excision of Descending Colon, Via Natural or Artificial Opening Endoscopic (ICD-10-PCS; principal; 2020-04-19)
DX: Z12.11 Encounter for screening for malignant neoplasm of colon (principal); D12.4 Benign neoplasm of descending colon; D12.5 Benign neoplasm of sigmoid colon; K57.30 Diverticulosis of large intestine without perforation or abscess without bleeding; I10 Essential (primary) hypertension; E78.00 Pure hypercholesterolemia, unspecified; E11.9 Type 2 diabetes mellitus without complications; K21.9 Gastro-esophageal reflux disease without esophagitis; G47.30 Sleep apnea, unspecified; Z79.899 Other long term (current) drug therapy; Z79.84 Long term (current) use of oral hypoglycemic drugs; Z86.711 Personal history of pulmonary embolism
CPT/HCPCS: 36416; 88305

== ENCOUNTER 2020-06-01 12:27 | Outpatient (CLI) | payer OTHER ==
--- NOTE | 2020-06-01 13:25 | RAD ---
EXAM: Chest 2 views: HISTORY: Shortness of breath COMPARISON: 02/27/2019 FINDINGS: There is an enlarged but stable cardiomediastinal silhouette. There is no evidence of consolidation, mass, or pleural effusion. Degenerative changes are seen in the spine. IMPRESSION: No evidence of acute cardiopulmonary disease
--- NOTE | 2020-06-01 14:35 | NM ---
NUCLEAR MEDICINE PERFUSION SCAN: (V/Q scan) DATE: 06/01/2020 HISTORY: 74-year-old male with "other pulmonary embolism without acute cor pulmonale TECHNIQUE: Technetium 99m-MAA dose: 6.1 mCi Ventilation scintigraphy not performed due to concern for contamination of ventilation equipment duri ng COVID-19 pandemic. Technetium 99m-MAA was injected IV, and multiple perfusion scintigraphic images were obtained. FINDINGS: The distribution of MAA and xenon is homogeneous. There are no defects; no evidence of pulmonary thro mboembolism. IMPRESSION: Normal.
== END 2020-06-01 12:28 | disposition home or self-care (01) ==
LOC: NM 12:27
PROVIDERS: ATTEND Internal Medicine Cardiovascular Disease
DX: I26.99 Other pulmonary embolism without acute cor pulmonale (principal)
CPT/HCPCS: 71046; 78451; A9540

== ENCOUNTER 2021-07-08 10:52 | Outpatient (CLI) | payer MEDICARE, OTHER ==
[2021-07-08 13:59] LABS: #Basophils 0.1 10x3/uL (0.0-0.2); #Eosinphils 0.1 10x3/uL (0.0-0.5); #Monocytes 0.4 10x3/uL (0.0-1.1); #Neutrophils 2.6 10x3/uL (1.5-8.4); %Basophils 1.1 % (0.0-2.0); %Eosinophils 2.5 % (0.0-6.0); %Lymphocytes 39.5 % (18.0-47.0); %Monocytes 7.1 % (0.0-10.0); %Neutrophils 49.2 % (40.0-75.0); Hemoglobin 12.2 g/dL (13.5-17.5); Mean Corpuscular HGB CONC 32.3 g/dL (32.0-36.0); Mean Corpuscular Hemoglobin 30.3 pg (27.0-33.0); Mean Corpuscular Volume 93.8 fl (81.2-95.1); Mean Platelet Volume 12.7 fl (7.4-10.4); Platelet Count 187 10x3/uL (150-450); RBC Distribution Width 15.7 % (11.5-14.5); Red Blood Cell (RBC) Count 4.03 10x6/uL (4.32-5.72); White Blood Cell (WBC) Count 5.2 10x3/uL (3.5-10.5)
[2021-07-08 14:14] LABS: ALT (SGPT) 19 U/L (8-55); AST (SGOT) 20 U/L (5-34); Albumin 3.8 g/dL (3.4-4.8); Alkaline Phosphatase 55 U/L (40-110); Anion Gap 15 mmol/L (10-20); BUN (Urea Nitrogen) 29 mg/dL (8.4-25.7); Bilirubin, Total 0.9 mg/dL (0.2-1.2); Calc. Creatinine Clearance 0 mL/min (70-130); Calcium 9.6 mg/dL (7.8-10.44); Carbon Dioxide 25 mmol/L (23-31); Chloride 108 mmol/L (98-107); Globulin 2.4 g/dL (2.4-3.5); Glucose 127 mg/dL (83-110); Potassium 3.8 mmol/L (3.5-5.1); Protein, Total 6.2 g/dL (5.8-8.1); Sodium 144 mmol/L (136-145)
[2021-07-09 13:13] LABS: SARS-CoV-2 PCR by NAA Not Detected (NotDetected)
== END 2021-07-08 10:53 | disposition home or self-care (01) ==
LOC: LABBT 10:52
PROVIDERS: ATTEND Internal Medicine Cardiovascular Disease
DX: Z01.812 Encounter for preprocedural laboratory examination (principal); Z20.822 Contact with and (suspected) exposure to COVID-19
CPT/HCPCS: 80053; 85025; U0003; U0005

== ENCOUNTER 2021-07-08 11:30 | Inpatient (IN) | payer MEDICARE, OTHER ==
[2021-07-12 17:18] VITALS: BMI 53.5
[2021-07-12] MEDS ORDERED: Dextrose 50% Abboject 50 ML SYRINGE SLOW IVP PRN (20:06)
[2021-07-12] MEDS ORDERED: HumaLOG 300 UNITS/3 ML VIAL SC PRN (20:06)
[2021-07-12] MEDS ORDERED: Dextrose 5% in Water 1,000 ML IV PRN (20:06)
[2021-07-12] MEDS ORDERED: Communication Order-Pharmacy FS SCH (20:15)
[2021-07-12] MEDS ORDERED: Pioglitazone HCl 45 MG TAB PO SCH (21:00)
[2021-07-12] MEDS: Sodium Chloride 0.9% 1,000 ML IV SCH (21:38)
[2021-07-12] MEDS ORDERED: FLU VACC QS2021-22(65YR UP)/PF 240 MCG/0.7 ML SYRINGE IM ONE (22:15)
[2021-07-12] MEDS: Atorvastatin Calcium 20 MG TAB PO SCH (22:20)
[2021-07-12] MEDS ORDERED: hydrALAZINE 25 MG TAB PO SCH (22:30)
[2021-07-13 05:12] LABS: #Basophils 0.1 thou/uL (0.0-0.2); #Eosinphils 0.2 thou/uL (0.0-0.7); #Lymphocytes 2.1 thou/uL (1.20-3.40); #Monocytes 0.5 thou/uL (0.11-0.59); #Neutrophils 2.8 thou/uL (1.40-6.50); %Basophils 0.9 % (0.0-1.0); %Lymphocytes 37.6 % (21.0-51.0); %Monocytes 8.4 % (0.0-10.0); %Neutrophils 50.1 % (42.0-75.0); Hemoglobin 10.9 g/dL (14.0-18.0); Mean Corpuscular HGB CONC 32.2 g/dL (32.0-36.0); Mean Corpuscular Hemoglobin 30.4 pg (27.0-31.0); Mean Corpuscular Volume 94.5 fL (78.0-98.0); Mean Platelet Volume 9.6 fL (7.4-10.4); Platelet Count 176 thou/uL (130-400); RBC Distribution Width 13.6 % (11.5-14.5); Red Blood Cell (RBC) Count 3.58 mill/uL (4.70-6.10); White Blood Cell (WBC) Count 5.5 thou/uL (4.8-10.8)
[2021-07-13 05:14] LABS: ALT (SGPT) 16 U/L (8-55); AST (SGOT) 15 U/L (5-34); Albumin 3.1 g/dL (3.4-4.8); Alkaline Phosphatase 54 U/L (40-110); Anion Gap 14 mmol/L (10-20); BUN (Urea Nitrogen) 28 mg/dL (8.4-25.7); Bilirubin, Total 0.6 mg/dL (0.2-1.2); Calc. Creatinine Clearance 97 mL/min (70-130); Calcium 8.4 mg/dL (7.8-10.44); Carbon Dioxide 25 mmol/L (23-31); Cardiac Risk 4.3 (Less than 4.5); Chloride 106 mmol/L (98-107); Cholesterol 126 mg/dl (< 200 Desired); Glucose 299 mg/dL (83-110); HDL Cholesterol 29 mg/dL (>60 Neg Risk); LDL Cholesterol, Calculated 66 mg/dL; Potassium 3.5 mmol/L (3.5-5.1); Protein, Total 5.1 g/dL (5.8-8.1); Sodium 141 mmol/L (136-145); Triglycerides 157 mg/dL (Less than 150)
[2021-07-13] MEDS: Sodium Chloride 0.9% 1,000 ML IV SCH ×2 (05:36→08:36)
[2021-07-13] MEDS: hydrALAZINE 25 MG TAB PO SCH ×2 (07:07→20:02)
[2021-07-13] MEDS ORDERED: Aspirin Chewable 81 MG TAB PO SCH (09:00)
[2021-07-13] MEDS ORDERED: Losartan 25 MG TAB PO SCH (09:00)
[2021-07-13] MEDS ORDERED: Amlodipine 10 MG TAB PO SCH (09:00)
[2021-07-13] MEDS ORDERED: Lidocaine 1% (PF) 30 ML VIAL ONE (09:39)
[2021-07-13] MEDS ORDERED: Nitroglycerin 100MG/250ML BOT 250 ML ONE (09:40)
[2021-07-13] MEDS ORDERED: Verapamil 5 MG/2 ML VIAL ONE (09:40)
[2021-07-13] MEDS ORDERED: Heparin 10,000 UNITS/ 10 ML VIAL ONE (09:40)
[2021-07-13] MEDS ORDERED: Fentanyl 100 MCG/2 ML VIAL ONE (10:54)
[2021-07-13] MEDS ORDERED: Midazolam HCl 2 mg/2 ml Vial ONE (10:54)
[2021-07-13] MEDS ORDERED: Iopamidol 370 76% 100 ML VIAL ONE (12:48)
[2021-07-13] MEDS ORDERED: hydrALAZINE 20 MG/ML VIAL SLOW IVP SCH (16:15)
[2021-07-13 20:02] VITALS: BP 201/83; TEMP 97.8
[2021-07-13] MEDS: Atorvastatin Calcium 20 MG TAB PO SCH (20:02)
[2021-07-14] MEDS ORDERED: Carvedilol 3.125 MG TAB PO SCH (08:00)
== END 2021-07-13 20:48 | disposition home or self-care (01) | DRG 287 ==
LOC: 2NO 07-12 02:25
PROVIDERS: ADMIT Internal Medicine Cardiovascular Disease; ATTEND Internal Medicine Cardiovascular Disease
PROC: 4A023N7 Measurement of Cardiac Sampling and Pressure, Left Heart, Percutaneous Approach (ICD-10-PCS; principal; 2021-07-13)
PROC: B2111ZZ Fluoroscopy of Multiple Coronary Arteries using Low Osmolar Contrast (ICD-10-PCS; 2021-07-13)
DX: I25.10 Atherosclerotic heart disease of native coronary artery without angina pectoris (principal); Z68.43 Body mass index [BMI] 50.0-59.9, adult; E78.5 Hyperlipidemia, unspecified; K21.9 Gastro-esophageal reflux disease without esophagitis; E11.22 Type 2 diabetes mellitus with diabetic chronic kidney disease; J30.9 Allergic rhinitis, unspecified; N18.30 Chronic kidney disease, stage 3 unspecified; E55.9 Vitamin D deficiency, unspecified; I12.9 Hypertensive chronic kidney disease with stage 1 through stage 4 chronic kidney disease, or unspecified chronic kidney disease; E66.9 Obesity, unspecified; G47.30 Sleep apnea, unspecified; N52.9 Male erectile dysfunction, unspecified; I87.2 Venous insufficiency (chronic) (peripheral); M19.90 Unspecified osteoarthritis, unspecified site; Z79.82 Long term (current) use of aspirin; Z99.89 Dependence on other enabling machines and devices; Z86.711 Personal history of pulmonary embolism; Z90.49 Acquired absence of other specified parts of digestive tract; Z90.89 Acquired absence of other organs; Z79.899 Other long term (current) drug therapy
CPT/HCPCS: 36415; 36416; 80053; 80061; 84443; 85025; 93458; 99152; J1644; J2001; J2250; J3010; J7050; Q9967

== ENCOUNTER 2021-07-19 16:36 | Outpatient (CLI) | payer MEDICARE | END 2021-07-19 16:37 | disposition home or self-care (01) | LOC: LABBT 16:36 | PROVIDERS: ATTEND Thoracic Surgery (Cardiothoracic Vascular Surgery) | DX: Z53.9 Procedure and treatment not carried out, unspecified reason (principal) | CPT/HCPCS: 80048; 85027; 86850; 86900; 86901; U0002 ==

== ENCOUNTER 2021-07-19 16:45 | Inpatient (IN) | payer MEDICARE, OTHER ==
[2021-07-19 17:33] LABS: Hemoglobin 12.5 g/dL (13.5-17.5); Mean Corpuscular HGB CONC 31.7 g/dL (32.0-36.0); Mean Corpuscular Hemoglobin 30.2 pg (27.0-33.0); Mean Corpuscular Volume 95.2 fl (81.2-95.1); Mean Platelet Volume 12.3 fl (7.4-10.4); Platelet Count 203 10x3/uL (150-450); RBC Distribution Width 15.7 % (11.5-14.5); Red Blood Cell (RBC) Count 4.14 10x6/uL (4.32-5.72); White Blood Cell (WBC) Count 5.8 10x3/uL (3.5-10.5)
[2021-07-19 17:54] LABS: Anion Gap 14 mmol/L (10-20); BUN (Urea Nitrogen) 30 mg/dL (8.4-25.7); Calc. Creatinine Clearance 0 mL/min (70-130); Calcium 9.1 mg/dL (7.8-10.44); Carbon Dioxide 27 mmol/L (23-31); Chloride 107 mmol/L (98-107); Glucose 150 mg/dL (83-110); Potassium 4.1 mmol/L (3.5-5.1); Sodium 144 mmol/L (136-145)
[2021-07-19 19:29] LABS: SARS-CoV-2 NAA Rapid Test Not Detected (NotDetected)
[2021-07-20] MEDS ORDERED: Fentanyl 250 MCG/5 ML VIAL ONE (06:30)
[2021-07-20] MEDS ORDERED: Albumin 5% 500 ML ONE (06:33)
[2021-07-20] MEDS ORDERED: niCARdipine 25 MG/10 ML VIAL ONE (06:37)
[2021-07-20] MEDS ORDERED: ceFAZolin 2 GM/DEX 5% 100 ML BAG ONE (06:58)
[2021-07-20] MEDS ORDERED: Midazolam HCl 2 mg/2 ml Vial ONE (07:11)
[2021-07-20] MEDS ORDERED: Calcium Chloride 1 GM/10 ML Abboject SYRINGE ONE (07:35)
[2021-07-20] MEDS ORDERED: Sodium Bicarb 50 MEQ/50 ML Abboject 8.4% SYRINGE ONE (07:35)
[2021-07-20] MEDS ORDERED: PROPOFOL 200 MG/20 ML VIAL ONE (07:35)
[2021-07-20] MEDS ORDERED: Rocuronium Bromide 10 MG/ML (10ML VIAL) ONE (07:35)
[2021-07-20] MEDS ORDERED: Lidocaine 1% PF 5 ML VIAL ONE (07:35)
[2021-07-20] MEDS ORDERED: Lidocaine 2% PF 100 mg/5 ml Syringe ONE (07:35)
[2021-07-20] MEDS ORDERED: Papaverine 60 MG/2 ML VIAL ONE (07:35)
[2021-07-20] MEDS ORDERED: Thrombin 5000 UNITS/5 ML VIAL ONE (07:35)
[2021-07-20] MEDS ORDERED: Heparin 30,000 units/30 ml VIAL ONE (07:35)
[2021-07-20] MEDS ORDERED: Vecuronium 10 MG VIAL ONE (07:35)
[2021-07-20] MEDS ORDERED: ePHEDrine 50 MG/ML VIAL ONE (07:35)
[2021-07-20] MEDS ORDERED: Potassium Chloride 60 MEQ/30 ML VIAL ONE (07:35)
[2021-07-20] MEDS ORDERED: Cardioplegic Soln 1,000 ML BAG ONE (07:35)
[2021-07-20] MEDS ORDERED: Mannitol 12.5 GM/50 ML ONE (07:35)
[2021-07-20] MEDS ORDERED: PHENYLEPHRINE-NS 100 MCG/ML 10 ML SYRINGE ONE ×3 (07:35→11:17)
[2021-07-20] MEDS ORDERED: Heparin 5,000 UNITS/ML VIAL ONE (07:35)
[2021-07-20] MEDS ORDERED: Aminocaproic Acid 5 GM/20 ML VIAL ONE (07:35)
[2021-07-20] MEDS ORDERED: Dextrose 50% Abboject 50 ML SYRINGE ONE (07:35)
[2021-07-20] MEDS ORDERED: Magnesium Sulfate 1 GM/2 ML VIAL ONE (07:35)
[2021-07-20] MEDS ORDERED: Protamine Sulfate 250 MG/25 ML VIAL ONE (07:35)
[2021-07-20] MEDS ORDERED: Morphine 4 MG/ML VIAL ONE (13:08)
[2021-07-20] MEDS ORDERED: niCARdipine 25 MG in Sodium Chloride 0.9% 250 ML 250 ML IVPB PRN (13:09)
[2021-07-20] MEDS: Lactated Ringer's 1,000 ML IV SCH (13:09)
[2021-07-20] MEDS ORDERED: Fentanyl 100 MCG/2 ML VIAL SLOW IVP PRN (13:09)
[2021-07-20] MEDS ORDERED: Promethazine HCl 25 MG/ML VIAL IM PRN (13:09)
[2021-07-20] MEDS ORDERED: Nitroglycerin 50 MG/250 ML BOT 250 ML IVPB PRN (13:09)
[2021-07-20] MEDS ORDERED: Norepinephrine 8 MG/0.9% NS 250 ML IVPB PRN (13:09)
[2021-07-20] MEDS ORDERED: Acetaminophen 325 MG TAB PO PRN (13:09)
[2021-07-20] MEDS ORDERED: Ondansetron PF 4 MG/2 ML Vial IVP PRN (13:09)
[2021-07-20] MEDS ORDERED: Post-Op Insulin Drip Protocol IVPB ONE (13:09)
[2021-07-20] MEDS ORDERED: DOPamine 400 MG/D5W 250 ML 250 ML IVPB PRN (13:09)
[2021-07-20] MEDS ORDERED: Hetastarch 6% 500 ML 500 ML IVPB PRN (13:09)
[2021-07-20] MEDS ORDERED: Guaifenesin DM 100-10/5 ML UDCUP PO PRN (13:09)
[2021-07-20] MEDS ORDERED: Mag-Al 1200 mg/1200 mg/30 ML UDCUP PO PRN (13:09)
[2021-07-20] MEDS ORDERED: Bisacodyl 5 MG TAB PO PRN (13:09)
[2021-07-20] MEDS ORDERED: Bisacodyl 10 MG SUPP PR PRN (13:09)
[2021-07-20] MEDS ORDERED: hydrALAZINE 20 MG/ML VIAL SLOW IVP PRN (13:09)
[2021-07-20 13:12] LABS: Actual Bicarbonate (HCO3a) 23.7 mEq/L (22-28); Base Excess (BEa) -0.5 mEq/L (-2.0 to +3.0); CO2 Tension 37.4 mmHg (35.0-45.0); Calcium, Ionized (arterial) 1.18 mmol/L (1.12-1.30); Carboxyhemoglobin (COHb) 0.1 gm% (0.0-3.0); Hemoglobin (Hb) 11.4 g/dL (14.0-18.0); O2 Tension (PaO2), arterial 115.9 mmHg (> 70.0); Potassium - ABG Lab 3.86 mmol/L (3.70-5.30); pH, Arterial 7.42 (7.35-7.45)
[2021-07-20 13:13] LABS: Puncture Site Arterial Line
[2021-07-20] MEDS: Morphine 4 MG/ML VIAL SLOW IVP PRN ×2 (13:14→14:16)
[2021-07-20 13:22] LABS: #Basophils 0.1 thou/uL (0.0-0.2); #Eosinphils 0.1 thou/uL (0.0-0.7); #Lymphocytes 2.3 thou/uL (1.20-3.40); #Monocytes 0.8 thou/uL (0.11-0.59); #Neutrophils 9.4 thou/uL (1.40-6.50); %Basophils 0.4 % (0.0-1.0); %Eosinophils 0.7 % (0.0-10.0); %Lymphocytes 18.4 % (21.0-51.0); %Monocytes 5.9 % (0.0-10.0); %Neutrophils 74.5 % (42.0-75.0); Mean Corpuscular HGB CONC 33.2 g/dL (32.0-36.0); Mean Corpuscular Hemoglobin 31.4 pg (27.0-31.0); Mean Corpuscular Volume 94.5 fL (78.0-98.0); Mean Platelet Volume 9.8 fL (7.4-10.4); Platelet Count 149 thou/uL (130-400); RBC Distribution Width 13.6 % (11.5-14.5); White Blood Cell (WBC) Count 12.6 thou/uL (4.8-10.8)
[2021-07-20] MEDS ORDERED: HUMULIN R 100 UNITS in Sodium Chloride 0.9% 100 ML IVPB SCH (13:30)
[2021-07-20] MEDS ORDERED: Lantus 1000 UNITS/10 ML VIAL SC PRN (13:30)
[2021-07-20] MEDS ORDERED: Dextrose 5% in Water 1,000 ML IV PRN (13:30)
[2021-07-20] MEDS ORDERED: Insulin Regular 300 UNITS/3 ML VIAL SC PRN (13:30)
[2021-07-20] MEDS ORDERED: Dextrose 50% Abboject 50 ML SYRINGE SLOW IVP PRN (13:30)
[2021-07-20 13:34] LABS: INR-International Normal Ratio 1.2; PTT 37.6 sec (22.9-36.1)
[2021-07-20 13:42] LABS: Anion Gap 14 mmol/L (10-20); BUN (Urea Nitrogen) 23 mg/dL (8.4-25.7); Calc. Creatinine Clearance 104 mL/min (70-130); Calcium 8.8 mg/dL (7.8-10.44); Carbon Dioxide 22 mmol/L (23-31); Chloride 111 mmol/L (98-107); Glucose 213 mg/dL (83-110); Potassium 3.9 mmol/L (3.5-5.1); Sodium 143 mmol/L (136-145)
[2021-07-20 14:00] VITALS: BMI 54.7
[2021-07-20] MEDS: CEFAZOLIN 2 GM, Admixture Fee 1 EACH in Sodium Chloride 0.9% 100 ML IVPB SCH ×2 (14:37→23:09)
[2021-07-20 15:26] LABS: Actual Bicarbonate (HCO3a) 20.9 mEq/L (22-28); CO2 Tension 37.7 mmHg (35.0-45.0); Calcium, Ionized (arterial) 1.18 mmol/L (1.12-1.30); Carboxyhemoglobin (COHb) 0.1 gm% (0.0-3.0); Hemoglobin (Hb) 11.4 g/dL (14.0-18.0); O2 Tension (PaO2), arterial 205.5 mmHg (> 70.0); Potassium - ABG Lab 3.79 mmol/L (3.70-5.30); pH, Arterial 7.36 (7.35-7.45)
[2021-07-20] MEDS: Fentanyl 100 MCG/2 ML VIAL SLOW IVP PRN ×2 (15:45→18:03)
[2021-07-20 16:46] LABS: ALV-art Gradient 32.575 mmHg (0-20); Puncture Site Arterial Line
[2021-07-20 18:34] LABS: Hemoglobin 10.5 g/dL (14.0-18.0)
[2021-07-20 18:57] LABS: Potassium 3.9 mmol/L (3.5-5.1)
[2021-07-20] MEDS: HYDROcodone/Acetaminophen 5/325 mg Tablet PO PRN (20:47)
[2021-07-20] MEDS: Potassium Chloride 20 MEQ/100 ML PREMIX BAG IVPB PRN (20:49)
[2021-07-20] MEDS ORDERED: Atorvastatin Calcium 20 MG TAB PO SCH (21:00)
[2021-07-20] MEDS ORDERED: Famotidine/PF 20 mg/2ml Vial SLOW IVP SCH (21:00)
[2021-07-21] MEDS: HYDROcodone/Acetaminophen 5/325 mg Tablet PO PRN ×6 (01:02→21:13)
[2021-07-21] MEDS: Lactated Ringer's 1,000 ML IV SCH ×2 (01:07→15:38)
[2021-07-21 03:33] LABS: #Lymphocytes 1.4 thou/uL (1.20-3.40); #Monocytes 0.8 thou/uL (0.11-0.59); #Neutrophils 7.1 thou/uL (1.40-6.50); %Basophils 0.4 % (0.0-1.0); %Eosinophils 0.1 % (0.0-10.0); %Lymphocytes 14.5 % (21.0-51.0); %Monocytes 8.6 % (0.0-10.0); %Neutrophils 76.4 % (42.0-75.0); Hemoglobin 9.6 g/dL (14.0-18.0); Mean Corpuscular HGB CONC 32.9 g/dL (32.0-36.0); Mean Corpuscular Hemoglobin 31.7 pg (27.0-31.0); Mean Corpuscular Volume 96.3 fL (78.0-98.0); Mean Platelet Volume 10.4 fL (7.4-10.4); Platelet Count 146 thou/uL (130-400); RBC Distribution Width 13.9 % (11.5-14.5); Red Blood Cell (RBC) Count 3.04 mill/uL (4.70-6.10); White Blood Cell (WBC) Count 9.3 thou/uL (4.8-10.8)
[2021-07-21 03:45] LABS: Anion Gap 14 mmol/L (10-20); BUN (Urea Nitrogen) 30 mg/dL (8.4-25.7); Calc. Creatinine Clearance 73 mL/min (70-130); Calcium 8.1 mg/dL (7.8-10.44); Carbon Dioxide 22 mmol/L (23-31); Chloride 110 mmol/L (98-107); Glucose 152 mg/dL (83-110); Sodium 142 mmol/L (136-145)
[2021-07-21] MEDS: Potassium Chloride 20 MEQ/100 ML PREMIX BAG IVPB PRN (04:00)
[2021-07-21] MEDS: CEFAZOLIN 2 GM, Admixture Fee 1 EACH in Sodium Chloride 0.9% 100 ML IVPB SCH (06:12)
[2021-07-21] MEDS: Aspirin 325 MG TAB PO SCH (08:53)
[2021-07-21] MEDS ORDERED: Famotidine/PF 20 mg/2ml Vial SLOW IVP SCH (09:00)
[2021-07-21] MEDS ORDERED: Nitroglycerin 0.4 MG TAB (25 Tab Bottle) SL PRN (10:21)
[2021-07-21] MEDS ORDERED: Mineral Oil ENEMA PR PRN (10:21)
[2021-07-21] MEDS ORDERED: Dextrose 5% in Water 1,000 ML IV PRN (10:30)
[2021-07-21] MEDS ORDERED: Dextrose 50% Abboject 50 ML SYRINGE SLOW IVP PRN (10:30)
[2021-07-21] MEDS: Insulin Regular 300 UNITS/3 ML VIAL SC PRN (17:02)
[2021-07-21] MEDS: Atorvastatin Calcium 20 MG TAB PO SCH (21:13)
[2021-07-21] MEDS: Lantus 1000 UNITS/10 ML VIAL SC SCH (21:42)
[2021-07-22] MEDS: HYDROcodone/Acetaminophen 5/325 mg Tablet PO PRN ×3 (02:39→20:58)
[2021-07-22] MEDS: Lactated Ringer's 1,000 ML IV SCH ×2 (02:42→17:50)
[2021-07-22] MEDS: Insulin Regular 300 UNITS/3 ML VIAL SC PRN ×3 (06:04→21:00)
[2021-07-22 06:14] LABS: #Basophils 0.1 thou/uL (0.0-0.2); #Eosinphils 0.1 thou/uL (0.0-0.7); #Lymphocytes 1.6 thou/uL (1.20-3.40); #Neutrophils 6.7 thou/uL (1.40-6.50); %Basophils 0.7 % (0.0-1.0); %Eosinophils 0.7 % (0.0-10.0); %Lymphocytes 16.8 % (21.0-51.0); %Monocytes 10.2 % (0.0-10.0); %Neutrophils 71.5 % (42.0-75.0); Hemoglobin 9.3 g/dL (14.0-18.0); Mean Corpuscular HGB CONC 33.7 g/dL (32.0-36.0); Mean Corpuscular Hemoglobin 32.3 pg (27.0-31.0); Mean Corpuscular Volume 96.1 fL (78.0-98.0); Mean Platelet Volume 10.6 fL (7.4-10.4); Platelet Count 145 thou/uL (130-400); RBC Distribution Width 13.8 % (11.5-14.5); Red Blood Cell (RBC) Count 2.87 mill/uL (4.70-6.10); White Blood Cell (WBC) Count 9.3 thou/uL (4.8-10.8)
[2021-07-22 06:35] LABS: Anion Gap 12 mmol/L (10-20); BUN (Urea Nitrogen) 45 mg/dL (8.4-25.7); Calc. Creatinine Clearance 55 mL/min (70-130); Calcium 8.3 mg/dL (7.8-10.44); Carbon Dioxide 25 mmol/L (23-31); Chloride 106 mmol/L (98-107); Glucose 213 mg/dL (83-110); Potassium 4.4 mmol/L (3.5-5.1); Sodium 139 mmol/L (136-145)
[2021-07-22] MEDS: Aspirin 325 MG TAB PO SCH (08:06)
[2021-07-22] MEDS: Enoxaparin Sodium 40 MG/0.4 ML SYRINGE SC SCH ×2 (08:06→20:59)
[2021-07-22] MEDS ORDERED: Lantus 1000 UNITS/10 ML VIAL SC SCH (09:00)
[2021-07-22] MEDS ORDERED: FLU VACC QS2021-22(65YR UP)/PF 240 MCG/0.7 ML SYRINGE IM ONE (09:00)
[2021-07-22] MEDS ORDERED: Furosemide 40 MG TAB PO SCH (09:00)
[2021-07-22] MEDS ORDERED: Carvedilol 3.125 MG TAB PO SCH ×2 (09:30→17:00)
[2021-07-22 11:25] LABS: Bilirubin Negative (Negative); Blood, Urine 2+ (Negative); Clarity Clear (Clear); Glucose, Urine (Dipstick) Normal (Negative); Ketone, Urine Trace mg/dL (Negative); Leukocyte 500 Leu/uL (Negative); Nitrite Negative (Negative); Protein, Urine (Dipstick) 20 mg/dL (Neg-Trace); RBC/HPF 0-3 HPF (0-3); Specific Gravity, Urine 1.019 (1.002-1.036); Squamous Epithelial 0-3 HPF (0-3); Urobilinogen Normal mg/dL (Less than 2); pH, Urine 5.5 (5.0-9.0)
[2021-07-22 11:29] LABS: Bacteria/HPF 1+ HPF (None Seen)
[2021-07-22 11:38] LABS: Creatinine, Urine 154.73 mg/dL (63-166)
[2021-07-22] MEDS: hydrALAZINE 25 MG TAB PO SCH (20:58)
[2021-07-22] MEDS: Atorvastatin Calcium 20 MG TAB PO SCH (20:58)
[2021-07-22] MEDS: Lantus 1000 UNITS/10 ML VIAL SC SCH (21:00)
[2021-07-23] MEDS: HYDROcodone/Acetaminophen 5/325 mg Tablet PO PRN ×4 (01:18→21:57)
[2021-07-23] MEDS: Lactated Ringer's 1,000 ML IV SCH ×2 (05:27→19:15)
[2021-07-23 05:51] LABS: Anion Gap 12 mmol/L (10-20); BUN (Urea Nitrogen) 42 mg/dL (8.4-25.7); Calc. Creatinine Clearance 75 mL/min (70-130); Calcium 8.1 mg/dL (7.8-10.44); Carbon Dioxide 24 mmol/L (23-31); Chloride 106 mmol/L (98-107); Glucose 151 mg/dL (83-110); Sodium 138 mmol/L (136-145)
[2021-07-23] MEDS ORDERED: Diltiazem 125 MG in Sodium Chloride 0.9% 100 ML IVPB SCH (07:30)
[2021-07-23] MEDS: Lantus 1000 UNITS/10 ML VIAL SC SCH ×2 (09:26→20:38)
[2021-07-23] MEDS: Carvedilol 6.25 MG TAB PO SCH ×2 (09:26→16:15)
[2021-07-23] MEDS: Aspirin 325 MG TAB PO SCH (09:26)
[2021-07-23] MEDS: hydrALAZINE 25 MG TAB PO SCH ×3 (09:26→20:38)
[2021-07-23] MEDS: Enoxaparin Sodium 40 MG/0.4 ML SYRINGE SC SCH ×2 (09:27→20:39)
[2021-07-23] MEDS: Insulin Regular 300 UNITS/3 ML VIAL SC PRN ×2 (11:38→19:14)
[2021-07-23] MEDS: Atorvastatin Calcium 20 MG TAB PO SCH (20:38)
[2021-07-23] MEDS: Amiodarone 200 MG TAB PO SCH (20:38)
[2021-07-24] MEDS ORDERED: Furosemide 40 MG TAB PO SCH (06:45)
[2021-07-24 07:08] LABS: #Basophils 0.1 thou/uL (0.0-0.2); #Eosinphils 0.3 thou/uL (0.0-0.7); #Lymphocytes 2.2 thou/uL (1.20-3.40); #Monocytes 0.7 thou/uL (0.11-0.59); #Neutrophils 3.6 thou/uL (1.40-6.50); %Basophils 0.9 % (0.0-1.0); %Eosinophils 3.9 % (0.0-10.0); %Lymphocytes 32.6 % (21.0-51.0); %Monocytes 10.4 % (0.0-10.0); %Neutrophils 52.2 % (42.0-75.0); Hemoglobin 8.2 g/dL (14.0-18.0); Mean Corpuscular HGB CONC 33.5 g/dL (32.0-36.0); Mean Corpuscular Hemoglobin 32.3 pg (27.0-31.0); Mean Corpuscular Volume 96.3 fL (78.0-98.0); Mean Platelet Volume 9.8 fL (7.4-10.4); Platelet Count 176 thou/uL (130-400); RBC Distribution Width 13.8 % (11.5-14.5); Red Blood Cell (RBC) Count 2.54 mill/uL (4.70-6.10); White Blood Cell (WBC) Count 6.8 thou/uL (4.8-10.8)
[2021-07-24 07:29] LABS: Anion Gap 12 mmol/L (10-20); BUN (Urea Nitrogen) 50 mg/dL (8.4-25.7); Calc. Creatinine Clearance 86 mL/min (70-130); Calcium 7.8 mg/dL (7.8-10.44); Carbon Dioxide 24 mmol/L (23-31); Chloride 107 mmol/L (98-107); Glucose 119 mg/dL (83-110); Potassium 3.9 mmol/L (3.5-5.1); Sodium 139 mmol/L (136-145)
[2021-07-24] MEDS: Aspirin 325 MG TAB PO SCH (09:25)
[2021-07-24] MEDS: Amiodarone 200 MG TAB PO SCH ×2 (09:25→21:26)
[2021-07-24] MEDS: Carvedilol 6.25 MG TAB PO SCH ×3 (09:26→18:17)
[2021-07-24] MEDS: Enoxaparin Sodium 40 MG/0.4 ML SYRINGE SC SCH ×2 (09:26→21:26)
[2021-07-24] MEDS: hydrALAZINE 25 MG TAB PO SCH ×3 (09:27→21:27)
[2021-07-24] MEDS: HYDROcodone/Acetaminophen 5/325 mg Tablet PO PRN ×2 (11:04→21:27)
[2021-07-24] MEDS: Lantus 1000 UNITS/10 ML VIAL SC SCH ×2 (11:10→21:30)
[2021-07-24] MEDS: Atorvastatin Calcium 20 MG TAB PO SCH (21:26)
[2021-07-24] MEDS: Insulin Regular 300 UNITS/3 ML VIAL SC PRN (21:29)
[2021-07-25 06:27] LABS: #Eosinphils 0.2 thou/uL (0.0-0.7); #Lymphocytes 2.4 thou/uL (1.20-3.40); #Monocytes 0.8 thou/uL (0.11-0.59); #Neutrophils 3.4 thou/uL (1.40-6.50); %Basophils 0.7 % (0.0-1.0); %Eosinophils 3.6 % (0.0-10.0); %Lymphocytes 34.9 % (21.0-51.0); %Monocytes 10.9 % (0.0-10.0); Hemoglobin 8.3 g/dL (14.0-18.0); Mean Corpuscular HGB CONC 33.9 g/dL (32.0-36.0); Mean Corpuscular Hemoglobin 32.4 pg (27.0-31.0); Mean Corpuscular Volume 95.4 fL (78.0-98.0); Mean Platelet Volume 9.4 fL (7.4-10.4); Platelet Count 205 thou/uL (130-400); RBC Distribution Width 13.7 % (11.5-14.5); Red Blood Cell (RBC) Count 2.56 mill/uL (4.70-6.10); White Blood Cell (WBC) Count 6.9 thou/uL (4.8-10.8)
[2021-07-25 06:49] LABS: Anion Gap 13 mmol/L (10-20); BUN (Urea Nitrogen) 44 mg/dL (8.4-25.7); Calc. Creatinine Clearance 91 mL/min (70-130); Calcium 8.1 mg/dL (7.8-10.44); Carbon Dioxide 24 mmol/L (23-31); Chloride 109 mmol/L (98-107); Glucose 107 mg/dL (83-110); Potassium 3.8 mmol/L (3.5-5.1); Sodium 142 mmol/L (136-145)
[2021-07-25] MEDS: Carvedilol 6.25 MG TAB PO SCH ×2 (08:05→16:59)
[2021-07-25] MEDS: Amiodarone 200 MG TAB PO SCH ×2 (08:06→22:31)
[2021-07-25] MEDS: Aspirin 325 MG TAB PO SCH (08:06)
[2021-07-25] MEDS: Enoxaparin Sodium 40 MG/0.4 ML SYRINGE SC SCH ×2 (08:06→22:31)
[2021-07-25] MEDS: hydrALAZINE 25 MG TAB PO SCH ×3 (08:06→22:32)
[2021-07-25] MEDS: HYDROcodone/Acetaminophen 5/325 mg Tablet PO PRN ×3 (08:11→22:33)
[2021-07-25] MEDS: Lantus 1000 UNITS/10 ML VIAL SC SCH ×2 (11:30→22:33)
[2021-07-25 13:30] LABS: Actual Bicarbonate (HCO3a) 26.8 mEq/L (22-28); Analyzer IN Cardio OR; Base Excess (BEa) 1.6 mEq/L (-2.0 to +3.0); CO2 Tension 44.2 mmHg (35.0-45.0); Calcium, Ionized (arterial) 1.13 mmol/L (1.12-1.30); Carboxyhemoglobin (COHb) 0.5 gm% (0.0-3.0); Hemoglobin (Hb) 12.2 g/dL (14.0-18.0); O2 Tension (PaO2), arterial 388.2 mmHg (> 70.0); Potassium - ABG Lab 3.46 mmol/L (3.70-5.30)
[2021-07-25 13:30] LABS: Actual Bicarbonate (HCO3a) 25.9 mEq/L (22-28); Analyzer IN Cardio OR; Base Excess (BEa) 1.3 mEq/L (-2.0 to +3.0); CO2 Tension 41.2 mmHg (35.0-45.0); Calcium, Ionized (arterial) 1.05 mmol/L (1.12-1.30); Carboxyhemoglobin (COHb) 0.8 gm% (0.0-3.0); Hemoglobin (Hb) 9.6 g/dL (14.0-18.0); O2 Tension (PaO2), arterial 335.2 mmHg (> 70.0); Potassium - ABG Lab 3.99 mmol/L (3.70-5.30); pH, Arterial 7.42 (7.35-7.45)
[2021-07-25 13:30] LABS: Analyzer IN Cardio OR; Base Excess (BEa) -0.1 mEq/L (-2.0 to +3.0); CO2 Tension 36.9 mmHg (35.0-45.0); Carboxyhemoglobin (COHb) 0.2 gm% (0.0-3.0); Hemoglobin (Hb) 11.2 g/dL (14.0-18.0); O2 Tension (PaO2), arterial 400.7 mmHg (> 70.0); Potassium - ABG Lab 3.39 mmol/L (3.70-5.30); pH, Arterial 7.43 (7.35-7.45)
[2021-07-25 13:31] LABS: Actual Bicarbonate (HCO3a) 25.1 mEq/L (22-28); Analyzer IN Cardio OR; Base Excess (BEa) 0.5 mEq/L (-2.0 to +3.0); CO2 Tension 40.4 mmHg (35.0-45.0); Calcium, Ionized (arterial) 1.05 mmol/L (1.12-1.30); Carboxyhemoglobin (COHb) 0.3 gm% (0.0-3.0); Hemoglobin (Hb) 9.1 g/dL (14.0-18.0); O2 Tension (PaO2), arterial 450.7 mmHg (> 70.0); Potassium - ABG Lab 3.94 mmol/L (3.70-5.30); pH, Arterial 7.41 (7.35-7.45)
[2021-07-25 13:31] LABS: Actual Bicarbonate (HCO3a) 22.5 mEq/L (22-28); Analyzer IN Cardio OR; Base Excess (BEa) -2.4 mEq/L (-2.0 to +3.0); CO2 Tension 39.3 mmHg (35.0-45.0); Calcium, Ionized (arterial) 1.84 mmol/L (1.12-1.30); Carboxyhemoglobin (COHb) 0.5 gm% (0.0-3.0); Hemoglobin (Hb) 9.1 g/dL (14.0-18.0); O2 Tension (PaO2), arterial 425.7 mmHg (> 70.0); Potassium - ABG Lab 3.94 mmol/L (3.70-5.30); pH, Arterial 7.38 (7.35-7.45)
[2021-07-25 13:31] LABS: Actual Bicarbonate (HCO3v) 26 mEq/L (22-28); Analyzer IN Cardio OR; Calcium, Ionized (venous) 1.05 mmol/L (1.16-1.32); Chloride (VBG) 107 mmol/L (98-106); Hemoglobin (Hb) 9.2 g/dL (12.6-17.4); Potassium (VBG) 3.93 mmol/L (3.70-5.30); Sodium 136.9 mmol/L (133-146); pH (venous) 7.39 (7.32-7.43)
[2021-07-25 13:32] LABS: Actual Bicarbonate (HCO3a) 23.3 mEq/L (22-28); Analyzer IN Cardio OR; Base Excess (BEa) -1.1 mEq/L (-2.0 to +3.0); CO2 Tension 37.6 mmHg (35.0-45.0); Calcium, Ionized (arterial) 1.14 mmol/L (1.12-1.30); Carboxyhemoglobin (COHb) 0.2 gm% (0.0-3.0); Hemoglobin (Hb) 10.1 g/dL (14.0-18.0); O2 Tension (PaO2), arterial 485.3 mmHg (> 70.0); Potassium - ABG Lab 3.63 mmol/L (3.70-5.30); pH, Arterial 7.41 (7.35-7.45)
[2021-07-25 13:32] LABS: Actual Bicarbonate (HCO3a) 22.6 mEq/L (22-28); Analyzer IN Cardio OR; Base Excess (BEa) -1.6 mEq/L (-2.0 to +3.0); CO2 Tension 35.8 mmHg (35.0-45.0); Calcium, Ionized (arterial) 1.16 mmol/L (1.12-1.30); Carboxyhemoglobin (COHb) 0.6 gm% (0.0-3.0); Hemoglobin (Hb) 8.5 g/dL (14.0-18.0); O2 Tension (PaO2), arterial 490.4 mmHg (> 70.0); pH, Arterial 7.42 (7.35-7.45)
[2021-07-25 13:33] LABS: Puncture Site Arterial Line
[2021-07-25 13:33] LABS: Puncture Site Arterial Line
[2021-07-25 13:34] LABS: Puncture Site Arterial Line
[2021-07-25 13:34] LABS: Puncture Site Arterial Line
[2021-07-25 13:35] LABS: Puncture Site Arterial Line
[2021-07-25 13:36] LABS: Puncture Site Arterial Line
[2021-07-25 13:36] LABS: Puncture Site Arterial Line
[2021-07-25] MEDS: Atorvastatin Calcium 20 MG TAB PO SCH (22:31)
[2021-07-26] MEDS: HYDROcodone/Acetaminophen 5/325 mg Tablet PO PRN (07:47)
[2021-07-26] MEDS: Aspirin 325 MG TAB PO SCH (07:48)
[2021-07-26] MEDS: Carvedilol 6.25 MG TAB PO SCH (07:48)
[2021-07-26] MEDS: Amiodarone 200 MG TAB PO SCH (07:49)
[2021-07-26] MEDS: hydrALAZINE 25 MG TAB PO SCH (07:49)
[2021-07-26] MEDS: Enoxaparin Sodium 40 MG/0.4 ML SYRINGE SC SCH (07:50)
[2021-07-26] MEDS: Lantus 1000 UNITS/10 ML VIAL SC SCH (07:51)
[2021-07-26 14:21] VITALS: BP 118/56; TEMP 97.2
== END 2021-07-26 14:07 | disposition home or self-care (01) | DRG 236 ==
LOC: EDSTATUS 16:45 → SURG A 07-20 06:00 → CCU 07-20 11:54 → 2NO 07-21 13:19
PROVIDERS: ADMIT Thoracic Surgery (Cardiothoracic Vascular Surgery); ATTEND Thoracic Surgery (Cardiothoracic Vascular Surgery)
PROC: 02100Z9 Bypass Coronary Artery, One Artery from Left Internal Mammary, Open Approach (ICD-10-PCS; principal; 2021-07-20)
PROC: 021209W Bypass Coronary Artery, Three Arteries from Aorta with Autologous Venous Tissue, Open Approach (ICD-10-PCS; 2021-07-20)
PROC: 06BQ0ZZ Excision of Left Saphenous Vein, Open Approach (ICD-10-PCS; 2021-07-20)
PROC: 5A1221Z Performance of Cardiac Output, Continuous (ICD-10-PCS; 2021-07-20)
DX: I25.10 Atherosclerotic heart disease of native coronary artery without angina pectoris (principal); Z68.43 Body mass index [BMI] 50.0-59.9, adult; N17.9 Acute kidney failure, unspecified; I48.92 Unspecified atrial flutter; E66.01 Morbid (severe) obesity due to excess calories; Z20.822 Contact with and (suspected) exposure to COVID-19; G47.33 Obstructive sleep apnea (adult) (pediatric); Z99.81 Dependence on supplemental oxygen; E11.22 Type 2 diabetes mellitus with diabetic chronic kidney disease; I12.9 Hypertensive chronic kidney disease with stage 1 through stage 4 chronic kidney disease, or unspecified chronic kidney disease; N18.30 Chronic kidney disease, stage 3 unspecified; Z86.711 Personal history of pulmonary embolism; I48.0 Paroxysmal atrial fibrillation; I51.7 Cardiomegaly; R19.7 Diarrhea, unspecified; E11.21 Type 2 diabetes mellitus with diabetic nephropathy; D63.1 Anemia in chronic kidney disease; G89.29 Other chronic pain; N52.9 Male erectile dysfunction, unspecified; M17.9 Osteoarthritis of knee, unspecified; M54.50 Low back pain, unspecified; E55.9 Vitamin D deficiency, unspecified; Z90.49 Acquired absence of other specified parts of digestive tract; Z90.89 Acquired absence of other organs
CPT/HCPCS: 36415; 36416; 36430; 71045; 76770; 80048; 81001; 82570; 82805; 84156; 85025; 85027; 85610; 85730; 86850; 86900; 86901; 93005; 93010; 93798; 94002; 97139; J0690; J1642; J1644; J1650; J1815; J2001; J2150; J2250; J2270; J2405; J2440; J2704; J2720; J3010; J3370; J3475; J3480; J3490; J7120; P9045; S0017; S0028; U0002

== ENCOUNTER 2021-07-29 16:07 | Inpatient (IN) | payer MEDICARE, OTHER ==
[~2021-07-29 16:07] MED LIST: FLU VACC QS2021-22(65YR UP)/PF 240 MCG/0.7 ML SYRINGE IM ONE; Iopamidol 370 76% 100 ML VIAL ONE
[2021-07-29 17:15] LABS: #Basophils 0.1 thou/uL (0.0-0.2); #Eosinphils 0.4 thou/uL (0.0-0.7); #Monocytes 0.5 thou/uL (0.11-0.59); #Neutrophils 5.9 thou/uL (1.40-6.50); %Basophils 0.7 % (0.0-1.0); %Eosinophils 4.1 % (0.0-10.0); %Lymphocytes 22.6 % (21.0-51.0); %Monocytes 6.1 % (0.0-10.0); %Neutrophils 66.5 % (42.0-75.0); Hemoglobin 9.6 g/dL (14.0-18.0); Mean Corpuscular HGB CONC 32.6 g/dL (32.0-36.0); Mean Corpuscular Hemoglobin 31.5 pg (27.0-31.0); Mean Corpuscular Volume 96.6 fL (78.0-98.0); Mean Platelet Volume 7.9 fL (7.4-10.4); Platelet Count 357 thou/uL (130-400); RBC Distribution Width 14.2 % (11.5-14.5); Red Blood Cell (RBC) Count 3.04 mill/uL (4.70-6.10); White Blood Cell (WBC) Count 8.9 thou/uL (4.8-10.8)
[2021-07-29] MEDS ORDERED: Labetalol HCl 100 MG/20 ML VIAL ONE (17:31)
[2021-07-29] MEDS ORDERED: Aspirin 325 MG TAB ONE (17:31)
[2021-07-29 17:42] LABS: ALT (SGPT) 13 U/L (8-55); AST (SGOT) 20 U/L (5-34); Albumin 3.2 g/dL (3.4-4.8); Alkaline Phosphatase 59 U/L (40-110); Anion Gap 13 mmol/L (10-20); BUN (Urea Nitrogen) 29 mg/dL (8.4-25.7); Bilirubin, Total 0.8 mg/dL (0.2-1.2); Calc. Creatinine Clearance 0 mL/min (70-130); Calcium 8.9 mg/dL (7.8-10.44); Carbon Dioxide 27 mmol/L (23-31); Chloride 108 mmol/L (98-107); Globulin 2.3 g/dL (2.4-3.5); Glucose 80 mg/dL (83-110); Potassium 3.8 mmol/L (3.5-5.1); Protein, Total 5.5 g/dL (5.8-8.1); Sodium 144 mmol/L (136-145)
[2021-07-29] MEDS ORDERED: hydrALAZINE 20 MG/ML VIAL ONE (17:44)
[2021-07-29 18:03] LABS: CKMB 1.3 ng/mL (0-6.6)
[2021-07-29] MEDS ORDERED: Enoxaparin Sodium 40 MG/0.4 ML SYRINGE ONE (18:51)
[2021-07-29] MEDS ORDERED: Enoxaparin Sodium 80 MG/0.8 ML SYRINGE ONE (18:51)
[2021-07-29] MEDS ORDERED: Carvedilol 6.25 MG TAB PO SCH (19:45)
[2021-07-29] MEDS ORDERED: Dextrose 5% in Water 1,000 ML IV PRN (19:46)
[2021-07-29] MEDS ORDERED: Dextrose 50% Abboject 50 ML SYRINGE SLOW IVP PRN (19:46)
[2021-07-29] MEDS ORDERED: hydrALAZINE 25 MG TAB ONE (19:46)
[2021-07-29] MEDS ORDERED: HumaLOG 300 UNITS/3 ML VIAL SC PRN ×2 (19:47)
[2021-07-29] MEDS ORDERED: Furosemide 40 MG/4 ML VIAL SLOW IVP SCH (20:00)
[2021-07-29 20:51] VITALS: BMI 53.2
[2021-07-29] MEDS: hydrALAZINE 25 MG TAB PO SCH (21:00)
[2021-07-29] MEDS: Amiodarone 200 MG TAB PO SCH (21:00)
[2021-07-29] MEDS: Atorvastatin Calcium 20 MG TAB PO SCH (21:00)
[2021-07-29 21:16] LABS: Troponin I 0.067 ng/mL (< 0.028)
[2021-07-29] MEDS: HYDROcodone/Acetaminophen 5/325 mg Tablet PO PRN (23:29)
[2021-07-30 00:03] LABS: Troponin I 0.062 ng/mL (< 0.028)
[2021-07-30 00:32] LABS: SARS-CoV-2 NAA Rapid Test Not Detected (NotDetected)
[2021-07-30] MEDS: hydrALAZINE 20 MG/ML VIAL SLOW IVP PRN ×2 (03:55→12:40)
[2021-07-30 04:26] LABS: #Basophils 0.1 thou/uL (0.0-0.2); #Eosinphils 0.4 thou/uL (0.0-0.7); #Lymphocytes 2.5 thou/uL (1.20-3.40); #Monocytes 0.7 thou/uL (0.11-0.59); #Neutrophils 5.3 thou/uL (1.40-6.50); %Basophils 0.6 % (0.0-1.0); %Eosinophils 4.9 % (0.0-10.0); %Lymphocytes 27.7 % (21.0-51.0); %Monocytes 7.3 % (0.0-10.0); %Neutrophils 59.4 % (42.0-75.0); Hemoglobin 9.2 g/dL (14.0-18.0); Mean Corpuscular HGB CONC 32.6 g/dL (32.0-36.0); Mean Corpuscular Hemoglobin 31.4 pg (27.0-31.0); Mean Corpuscular Volume 96.1 fL (78.0-98.0); Mean Platelet Volume 7.9 fL (7.4-10.4); Platelet Count 332 thou/uL (130-400); RBC Distribution Width 14.3 % (11.5-14.5); Red Blood Cell (RBC) Count 2.95 mill/uL (4.70-6.10); White Blood Cell (WBC) Count 8.8 thou/uL (4.8-10.8)
[2021-07-30 04:38] LABS: Anion Gap 15 mmol/L (10-20); BUN (Urea Nitrogen) 28 mg/dL (8.4-25.7); Calc. Creatinine Clearance 90 mL/min (70-130); Calcium 8.4 mg/dL (7.8-10.44); Carbon Dioxide 25 mmol/L (23-31); Chloride 107 mmol/L (98-107); Glucose 140 mg/dL (83-110); Potassium 3.6 mmol/L (3.5-5.1); Sodium 143 mmol/L (136-145)
[2021-07-30] MEDS: HYDROcodone/Acetaminophen 5/325 mg Tablet PO PRN ×3 (04:50→14:17)
[2021-07-30] MEDS ORDERED: hydrALAZINE 25 MG TAB PO SCH (05:00)
[2021-07-30] MEDS: Aspirin 325 MG TAB PO SCH (10:13)
[2021-07-30] MEDS: Carvedilol 6.25 MG TAB PO SCH ×2 (10:13→16:48)
[2021-07-30] MEDS: hydrALAZINE 25 MG TAB PO SCH ×2 (10:14→21:18)
[2021-07-30] MEDS: Amiodarone 200 MG TAB PO SCH ×2 (10:14→21:18)
[2021-07-30] MEDS: Enoxaparin Sodium 30 MG/0.3 ML SYRINGE SC SCH ×2 (10:15→21:18)
[2021-07-30] MEDS: Furosemide 40 MG TAB PO SCH (10:15)
[2021-07-30] MEDS: Enoxaparin Sodium 120 MG/0.8 ML SYRINGE SC SCH ×2 (10:15→21:19)
[2021-07-30] MEDS ORDERED: diphenhydrAMINE 25 MG CAP PO PRN (10:18)
[2021-07-30 11:10] LABS: Iron 40 ug/dL (65-175); Iron Binding Capacity, Total 228 mcg/dL (261-462)
[2021-07-30] MEDS ORDERED: hydrOXYzine 25 MG TAB PO PRN (11:18)
[2021-07-30 11:35] LABS: Ferritin 250.03 ng/mL (22-322)
[2021-07-30] MEDS ORDERED: Potassium Chloride 20 MEQ TAB PO SCH (12:00)
[2021-07-30] MEDS: SUB Q INSULIN DEVICE SC SCH (14:16)
[2021-07-30] MEDS: Atorvastatin Calcium 20 MG TAB PO SCH (21:17)
[2021-07-30] MEDS: Melatonin 3 MG TAB PO PRN (21:17)
[2021-07-31] MEDS: HYDROcodone/Acetaminophen 5/325 mg Tablet PO PRN (03:53)
[2021-07-31 05:13] LABS: #Basophils 0.1 thou/uL (0.0-0.2); #Eosinphils 0.4 thou/uL (0.0-0.7); #Monocytes 0.7 thou/uL (0.11-0.59); #Neutrophils 5.4 thou/uL (1.40-6.50); %Basophils 1.1 % (0.0-1.0); %Eosinophils 4.7 % (0.0-10.0); %Lymphocytes 23.3 % (21.0-51.0); %Monocytes 7.8 % (0.0-10.0); %Neutrophils 63.1 % (42.0-75.0); Hemoglobin 8.6 g/dL (14.0-18.0); Mean Corpuscular HGB CONC 32.5 g/dL (32.0-36.0); Mean Corpuscular Hemoglobin 31.5 pg (27.0-31.0); Mean Corpuscular Volume 96.8 fL (78.0-98.0); Mean Platelet Volume 7.7 fL (7.4-10.4); Platelet Count 247 thou/uL (130-400); RBC Distribution Width 14.4 % (11.5-14.5); Red Blood Cell (RBC) Count 2.74 mill/uL (4.70-6.10); White Blood Cell (WBC) Count 8.5 thou/uL (4.8-10.8)
[2021-07-31 05:54] LABS: Anion Gap 15 mmol/L (10-20); BUN (Urea Nitrogen) 31 mg/dL (8.4-25.7); Calc. Creatinine Clearance 90 mL/min (70-130); Calcium 8.2 mg/dL (7.8-10.44); Carbon Dioxide 25 mmol/L (23-31); Chloride 108 mmol/L (98-107); Glucose 155 mg/dL (83-110); Sodium 144 mmol/L (136-145)
[2021-07-31] MEDS ORDERED: Folic Acid 1 MG TAB PO SCH (10:00)
[2021-07-31] MEDS: Furosemide 40 MG TAB PO SCH ×2 (10:02→17:01)
[2021-07-31] MEDS: Enoxaparin Sodium 120 MG/0.8 ML SYRINGE SC SCH ×2 (10:02→21:50)
[2021-07-31] MEDS: Amiodarone 200 MG TAB PO SCH ×2 (10:02→21:50)
[2021-07-31] MEDS: Carvedilol 6.25 MG TAB PO SCH ×2 (10:02→17:01)
[2021-07-31] MEDS: Aspirin 325 MG TAB PO SCH (10:03)
[2021-07-31] MEDS: Enoxaparin Sodium 30 MG/0.3 ML SYRINGE SC SCH ×2 (10:03→21:50)
[2021-07-31] MEDS: SUB Q INSULIN DEVICE SC SCH (10:03)
[2021-07-31] MEDS: hydrALAZINE 25 MG TAB PO SCH ×2 (10:09→21:49)
[2021-07-31] MEDS ORDERED: hydrALAZINE 25 MG TAB PO SCH (10:30)
[2021-07-31] MEDS ORDERED: Ferrous Sulfate 325 MG TAB PO SCH (12:00)
[2021-07-31] MEDS: Potassium Chloride 10 MEQ TAB PO SCH (17:01)
[2021-07-31] MEDS: Atorvastatin Calcium 20 MG TAB PO SCH (21:49)
[2021-07-31] MEDS: Melatonin 3 MG TAB PO PRN (21:51)
[2021-08-01 05:28] LABS: #Basophils 0.1 thou/uL (0.0-0.2); #Eosinphils 0.4 thou/uL (0.0-0.7); #Lymphocytes 2.3 thou/uL (1.20-3.40); #Monocytes 0.7 thou/uL (0.11-0.59); #Neutrophils 4.5 thou/uL (1.40-6.50); %Basophils 1.1 % (0.0-1.0); %Eosinophils 5.6 % (0.0-10.0); %Lymphocytes 28.2 % (21.0-51.0); %Monocytes 9.2 % (0.0-10.0); Hemoglobin 8.5 g/dL (14.0-18.0); Mean Corpuscular HGB CONC 31.9 g/dL (32.0-36.0); Mean Corpuscular Hemoglobin 30.8 pg (27.0-31.0); Mean Corpuscular Volume 96.5 fL (78.0-98.0); Mean Platelet Volume 7.9 fL (7.4-10.4); Platelet Count 229 thou/uL (130-400); RBC Distribution Width 14.3 % (11.5-14.5); Red Blood Cell (RBC) Count 2.76 mill/uL (4.70-6.10)
[2021-08-01 05:50] LABS: Anion Gap 13 mmol/L (10-20); BUN (Urea Nitrogen) 31 mg/dL (8.4-25.7); Calc. Creatinine Clearance 86 mL/min (70-130); Calcium 8.4 mg/dL (7.8-10.44); Carbon Dioxide 27 mmol/L (23-31); Chloride 109 mmol/L (98-107); Glucose 166 mg/dL (83-110); Potassium 3.7 mmol/L (3.5-5.1); Sodium 145 mmol/L (136-145)
[2021-08-01] MEDS ORDERED: Potassium Chloride 20 MEQ TAB PO SCH (06:00)
[2021-08-01] MEDS ORDERED: Folic Acid 1 MG TAB PO SCH (09:00)
[2021-08-01 09:43] VITALS: TEMP 98.6
[2021-08-01] MEDS: Amiodarone 200 MG TAB PO SCH (11:18)
[2021-08-01] MEDS: Furosemide 40 MG TAB PO SCH ×2 (11:18→14:35)
[2021-08-01] MEDS: Aspirin 325 MG TAB PO SCH (11:19)
[2021-08-01] MEDS: SUB Q INSULIN DEVICE SC SCH (11:19)
[2021-08-01] MEDS: hydrALAZINE 25 MG TAB PO SCH (11:32)
[2021-08-01] MEDS: Enoxaparin Sodium 120 MG/0.8 ML SYRINGE SC SCH (12:59)
[2021-08-01] MEDS: Enoxaparin Sodium 30 MG/0.3 ML SYRINGE SC SCH (12:59)
[2021-08-01] MEDS: Carvedilol 6.25 MG TAB PO SCH (14:32)
[2021-08-01] MEDS: Potassium Chloride 10 MEQ TAB PO SCH (14:33)
[2021-08-01 20:56] VITALS: BP 162/70
[2021-08-01] MEDS ORDERED: Apixaban 5 MG TAB PO SCH ×2 (21:00)
== END 2021-08-01 15:00 | disposition home or self-care (01) | DRG 299 ==
LOC: ERS 16:07 → 2NO 18:54
PROVIDERS: ADMIT Family Medicine; ATTEND Family Medicine
DX: T81.718A Complication of other artery following a procedure, not elsewhere classified, initial encounter (principal); J96.01 Acute respiratory failure with hypoxia; J90 Pleural effusion, not elsewhere classified; J98.11 Atelectasis; I26.99 Other pulmonary embolism without acute cor pulmonale; Z20.822 Contact with and (suspected) exposure to COVID-19; I25.10 Atherosclerotic heart disease of native coronary artery without angina pectoris; E78.5 Hyperlipidemia, unspecified; I16.0 Hypertensive urgency; N18.31 Chronic kidney disease, stage 3a; D63.1 Anemia in chronic kidney disease; I12.9 Hypertensive chronic kidney disease with stage 1 through stage 4 chronic kidney disease, or unspecified chronic kidney disease; E11.22 Type 2 diabetes mellitus with diabetic chronic kidney disease; I48.91 Unspecified atrial fibrillation; I08.1 Rheumatic disorders of both mitral and tricuspid valves; Z90.49 Acquired absence of other specified parts of digestive tract; Z95.1 Presence of aortocoronary bypass graft; Z90.89 Acquired absence of other organs; Z91.09 Other allergy status, other than to drugs and biological substances; Z79.899 Other long term (current) drug therapy; Z79.4 Long term (current) use of insulin; Z79.82 Long term (current) use of aspirin; Z82.49 Family history of ischemic heart disease and other diseases of the circulatory system; Y83.2 Surgical operation with anastomosis, bypass or graft as the cause of abnormal reaction of the patient, or of later complication, without mention of misadventure at the time of the procedure
CPT/HCPCS: 36415; 36416; 71045; 71275; 80048; 80053; 82553; 82607; 82728; 82746; 83540; 83550; 83880; 84484; 85025; 93005; 93010; 93306; 96372; 96374; J0360; J1650; J1815; J1940; Q9967; U0002

== ENCOUNTER 2021-08-23 10:31 | Emergency (ER) | payer MEDICARE, OTHER ==
[2021-08-23 11:19] LABS: #Eosinphils 0.3 thou/uL (0.0-0.7); #Lymphocytes 1.8 thou/uL (1.20-3.40); #Monocytes 0.5 thou/uL (0.11-0.59); #Neutrophils 5.2 thou/uL (1.40-6.50); %Basophils 0.4 % (0.0-1.0); %Eosinophils 3.6 % (0.0-10.0); %Lymphocytes 23.1 % (21.0-51.0); %Monocytes 5.9 % (0.0-10.0); %Neutrophils 66.9 % (42.0-75.0); Hemoglobin 10.6 g/dL (14.0-18.0); Mean Corpuscular HGB CONC 32.4 g/dL (32.0-36.0); Mean Corpuscular Hemoglobin 30.7 pg (27.0-31.0); Mean Corpuscular Volume 94.7 fL (78.0-98.0); Mean Platelet Volume 8.9 fL (7.4-10.4); Platelet Count 195 thou/uL (130-400); RBC Distribution Width 14.3 % (11.5-14.5); Red Blood Cell (RBC) Count 3.47 mill/uL (4.70-6.10); White Blood Cell (WBC) Count 7.8 thou/uL (4.8-10.8)
[2021-08-23 11:38] LABS: ALT (SGPT) 11 U/L (8-55); AST (SGOT) 14 U/L (5-34); Albumin 3.3 g/dL (3.4-4.8); Alkaline Phosphatase 75 U/L (40-110); Anion Gap 14 mmol/L (10-20); BUN (Urea Nitrogen) 27 mg/dL (8.4-25.7); Bilirubin, Total 0.8 mg/dL (0.2-1.2); Calc. Creatinine Clearance 0 mL/min (70-130); Carbon Dioxide 26 mmol/L (23-31); Chloride 106 mmol/L (98-107); Globulin 2.9 g/dL (2.4-3.5); Glucose 208 mg/dL (83-110); Potassium 3.5 mmol/L (3.5-5.1); Protein, Total 6.2 g/dL (5.8-8.1); Sodium 142 mmol/L (136-145)
== END 2021-08-23 12:26 | disposition home or self-care (01) ==
LOC: ERS 10:31
DX: G89.18 Other acute postprocedural pain (principal); M79.605 Pain in left leg; E11.9 Type 2 diabetes mellitus without complications; I10 Essential (primary) hypertension; Z79.82 Long term (current) use of aspirin; Z79.891 Long term (current) use of opiate analgesic; Z79.899 Other long term (current) drug therapy
CPT/HCPCS: 36415; 80053; 85025

== ENCOUNTER 2022-11-11 16:47 | Inpatient (IN) | payer MEDICARE, OTHER ==
[2022-11-11 17:23] LABS: #Eosinphils 0.2 thou/uL (0.0-0.7); #Lymphocytes 2.5 thou/uL (1.20-3.40); #Monocytes 0.6 thou/uL (0.11-0.59); #Neutrophils 4.5 thou/uL (1.40-6.50); %Basophils 0.5 % (0.0-1.0); %Eosinophils 2.1 % (0.0-10.0); %Lymphocytes 32.3 % (21.0-51.0); %Monocytes 7.8 % (0.0-10.0); %Neutrophils 57.3 % (42.0-75.0); Hemoglobin 13.3 g/dL (14.0-18.0); Mean Corpuscular HGB CONC 33.5 g/dL (32.0-36.0); Mean Corpuscular Hemoglobin 32.1 pg (27.0-31.0); Mean Platelet Volume 10.2 fL (7.4-10.4); Platelet Count 177 10x3/uL (130-400); RBC Distribution Width 12.9 % (11.5-14.5); Red Blood Cell (RBC) Count 4.15 mill/uL (4.70-6.10); White Blood Cell (WBC) Count 7.8 10x3/uL (4.8-10.8)
[2022-11-11] MEDS ORDERED: Aspirin Chewable 81 MG TAB ONE (17:33)
[2022-11-11] MEDS ORDERED: Nitroglycerin 0.4 MG TAB 1 EACH ONE (17:33)
[2022-11-11 17:43] LABS: ALT (SGPT) 17 U/L (8-55); AST (SGOT) 18 U/L (5-34); Albumin 3.8 g/dL (3.4-4.8); Alkaline Phosphatase 68 U/L (40-110); Anion Gap 16 mmol/L (10-20); BUN (Urea Nitrogen) 36 mg/dL (8.4-25.7); Bilirubin, Total 0.7 mg/dL (0.2-1.2); Calc. Creatinine Clearance 0 mL/min (70-130); Calcium 9.2 mg/dL (7.8-10.44); Carbon Dioxide 23 mmol/L (23-31); Chloride 106 mmol/L (98-107); Estimated GFR 38; Globulin 2.4 g/dL (2.4-3.5); Glucose 199 mg/dL (83-110); Lipase 56 U/L (8-78); Potassium 3.8 mmol/L (3.5-5.1); Protein, Total 6.2 g/dL (5.8-8.1); Sodium 141 mmol/L (136-145)
[2022-11-11] MEDS ORDERED: Acetaminophen 325 MG TAB PO PRN (19:43)
[2022-11-11] MEDS ORDERED: Ondansetron PF 4 MG/2 ML Vial IVP PRN (19:43)
[2022-11-11] MEDS ORDERED: Nitroglycerin 0.4 MG TAB (25 Tab Bottle) SL PRN (19:50)
[2022-11-11] MEDS ORDERED: Dextrose 50% Abboject 50 ML SYRINGE SLOW IVP PRN (19:51)
[2022-11-11] MEDS ORDERED: Dextrose 5% in Water 1,000 ML IV PRN (19:51)
[2022-11-11] MEDS: hydrALAZINE 25 MG TAB PO SCH (20:32)
[2022-11-11] MEDS ORDERED: Atorvastatin Calcium 40 MG TAB PO SCH (21:00)
[2022-11-11] MEDS ORDERED: Carvedilol 6.25 MG TAB PO SCH (21:00)
[2022-11-11 21:15] VITALS: BMI 48.6
[2022-11-11 22:40] LABS: Troponin I 0.011 ng/mL (< 0.028)
[2022-11-11] MEDS ORDERED: NIFEdipine XL 60 MG TAB PO SCH (23:00)
[2022-11-11] MEDS ORDERED: Nitroglycerin 2% Ointment 1 INCH/1 GM Packet TOP SCH (23:00)
[2022-11-11] MEDS: Melatonin 3 MG TAB PO PRN (23:32)
[2022-11-12 01:30] LABS: Troponin I 0.012 ng/mL (< 0.028)
[2022-11-12 05:29] LABS: #Basophils 0.1 thou/uL (0.0-0.2); #Eosinphils 0.1 thou/uL (0.0-0.7); #Lymphocytes 2.2 thou/uL (1.20-3.40); #Monocytes 0.5 thou/uL (0.11-0.59); #Neutrophils 3.3 thou/uL (1.40-6.50); %Basophils 1.5 % (0.0-1.0); %Eosinophils 2.3 % (0.0-10.0); %Lymphocytes 35.3 % (21.0-51.0); %Neutrophils 52.9 % (42.0-75.0); Mean Corpuscular HGB CONC 33.1 g/dL (32.0-36.0); Mean Corpuscular Volume 96.7 fl (78.0-98.0); Mean Platelet Volume 9.9 fL (7.4-10.4); Platelet Count 164 10x3/uL (130-400); RBC Distribution Width 12.9 % (11.5-14.5); Red Blood Cell (RBC) Count 3.77 mill/uL (4.70-6.10); White Blood Cell (WBC) Count 6.2 10x3/uL (4.8-10.8)
[2022-11-12 05:57] LABS: Anion Gap 13 mmol/L (10-20); BUN (Urea Nitrogen) 41 mg/dL (8.4-25.7); Calc. Creatinine Clearance 61 mL/min (70-130); Calcium 8.9 mg/dL (7.8-10.44); Carbon Dioxide 28 mmol/L (23-31); Chloride 105 mmol/L (98-107); Estimated GFR 34; Glucose 243 mg/dL (83-110); Potassium 3.8 mmol/L (3.5-5.1); Sodium 142 mmol/L (136-145)
[2022-11-12] MEDS: HumaLOG 300 UNITS/3 ML VIAL SC PRN ×4 (06:08→21:07)
[2022-11-12] MEDS ORDERED: Sodium Chloride 0.9% 1,000 ML IV SCH (08:00)
[2022-11-12] MEDS: hydrALAZINE 25 MG TAB PO SCH ×3 (08:37→21:06)
[2022-11-12] MEDS: Aspirin 81 mg Enteric Coated Tablet PO SCH (08:38)
[2022-11-12] MEDS: Carvedilol 25 MG TAB PO SCH ×2 (08:42→16:59)
[2022-11-12] MEDS ORDERED: Valsartan 80 MG TAB PO SCH (09:00)
[2022-11-12] MEDS ORDERED: Furosemide 40 MG TAB PO SCH (09:00)
[2022-11-12] MEDS ORDERED: Aspirin 81 mg Enteric Coated Tablet PO SCH (09:00)
[2022-11-12] MEDS ORDERED: NIFEdipine XL 60 MG TAB PO SCH (09:00)
[2022-11-12] MEDS: Atorvastatin Calcium 40 MG TAB PO SCH (21:06)
[2022-11-13] MEDS: Melatonin 3 MG TAB PO PRN (01:08)
[2022-11-13 04:25] LABS: #Basophils 0.1 thou/uL (0.0-0.2); #Eosinphils 0.2 thou/uL (0.0-0.7); #Lymphocytes 2.4 thou/uL (1.20-3.40); #Monocytes 0.5 thou/uL (0.11-0.59); %Basophils 1.4 % (0.0-1.0); %Eosinophils 3.3 % (0.0-10.0); %Lymphocytes 39.6 % (21.0-51.0); %Monocytes 7.9 % (0.0-10.0); %Neutrophils 47.8 % (42.0-75.0); Hemoglobin 11.8 g/dL (14.0-18.0); Mean Corpuscular Hemoglobin 31.9 pg (27.0-31.0); Mean Corpuscular Volume 96.5 fl (78.0-98.0); Mean Platelet Volume 10.2 fL (7.4-10.4); Platelet Count 151 10x3/uL (130-400); RBC Distribution Width 12.8 % (11.5-14.5); Red Blood Cell (RBC) Count 3.69 mill/uL (4.70-6.10); White Blood Cell (WBC) Count 6.2 10x3/uL (4.8-10.8)
[2022-11-13 04:49] LABS: Anion Gap 12 mmol/L (10-20); BUN (Urea Nitrogen) 37 mg/dL (8.4-25.7); Calc. Creatinine Clearance 78 mL/min (70-130); Calcium 8.8 mg/dL (7.8-10.44); Carbon Dioxide 26 mmol/L (23-31); Chloride 105 mmol/L (98-107); Estimated GFR 45; Glucose 212 mg/dL (83-110); Magnesium 1.6 mg/dL (1.6-2.6); Potassium 3.6 mmol/L (3.5-5.1); Sodium 139 mmol/L (136-145)
[2022-11-13] MEDS: HumaLOG 300 UNITS/3 ML VIAL SC PRN ×3 (07:03→20:27)
[2022-11-13] MEDS ORDERED: hydrALAZINE 20 MG/ML VIAL SLOW IVP SCH (09:30)
[2022-11-13] MEDS ORDERED: Valsartan 80 MG TAB PO SCH (09:30)
[2022-11-13] MEDS: Carvedilol 25 MG TAB PO SCH ×2 (10:01→15:56)
[2022-11-13] MEDS: hydrALAZINE 25 MG TAB PO SCH ×3 (10:01→20:30)
[2022-11-13] MEDS: Aspirin 81 mg Enteric Coated Tablet PO SCH (10:01)
[2022-11-13] MEDS: Atorvastatin Calcium 40 MG TAB PO SCH (20:29)
[2022-11-14 05:31] LABS: Anion Gap 12 mmol/L (10-20); BUN (Urea Nitrogen) 29 mg/dL (8.4-25.7); Calc. Creatinine Clearance 79 mL/min (70-130); Calcium 8.9 mg/dL (7.8-10.44); Carbon Dioxide 24 mmol/L (23-31); Chloride 105 mmol/L (98-107); Estimated GFR 46; Glucose 304 mg/dL (83-110); Potassium 3.7 mmol/L (3.5-5.1); Sodium 137 mmol/L (136-145)
[2022-11-14] MEDS: HumaLOG 300 UNITS/3 ML VIAL SC PRN ×3 (06:59→18:16)
[2022-11-14] MEDS: Carvedilol 25 MG TAB PO SCH (09:34)
[2022-11-14] MEDS: Aspirin 81 mg Enteric Coated Tablet PO SCH (09:35)
[2022-11-14] MEDS: hydrALAZINE 25 MG TAB PO SCH ×3 (09:35→21:19)
[2022-11-14] MEDS: Valsartan 80 MG TAB PO SCH (09:35)
[2022-11-14] MEDS ORDERED: Insulin Glargine 30 UNITS/0.3 ML VIAL SC SCH ×2 (13:45→21:00)
[2022-11-14] MEDS ORDERED: NIFEdipine XL 30 MG TAB PO SCH ×2 (14:00→21:00)
[2022-11-14] MEDS ORDERED: Furosemide 40 MG TAB PO SCH (14:00)
[2022-11-14] MEDS: Carvedilol 6.25 MG TAB PO SCH (16:52)
[2022-11-14] MEDS: Atorvastatin Calcium 40 MG TAB PO SCH (21:18)
[2022-11-15] MEDS ORDERED: NIFEdipine XL 60 MG TAB PO SCH (09:00)
[2022-11-15] MEDS ORDERED: Furosemide 40 MG TAB PO SCH (09:00)
[2022-11-15] MEDS: Carvedilol 6.25 MG TAB PO SCH ×2 (09:06→16:22)
[2022-11-15] MEDS: Aspirin 81 mg Enteric Coated Tablet PO SCH (09:07)
[2022-11-15] MEDS: hydrALAZINE 25 MG TAB PO SCH ×2 (09:08→16:21)
[2022-11-15] MEDS: Valsartan 80 MG TAB PO SCH (09:10)
[2022-11-15 16:39] VITALS: BP 141/73; TEMP 97.8
== END 2022-11-15 17:05 | disposition home or self-care (01) | DRG 305 ==
LOC: ERS 16:47 → 2SW 18:44 → OBSVTOIN 11-13 11:40
PROVIDERS: ADMIT Internal Medicine; ATTEND Internal Medicine
DX: I16.0 Hypertensive urgency (principal); N17.9 Acute kidney failure, unspecified; I50.32 Chronic diastolic (congestive) heart failure; Z68.42 Body mass index [BMI] 45.0-49.9, adult; Z20.822 Contact with and (suspected) exposure to COVID-19; I44.1 Atrioventricular block, second degree; I13.0 Hypertensive heart and chronic kidney disease with heart failure and stage 1 through stage 4 chronic kidney disease, or unspecified chronic kidney disease; I25.10 Atherosclerotic heart disease of native coronary artery without angina pectoris; E78.5 Hyperlipidemia, unspecified; E11.22 Type 2 diabetes mellitus with diabetic chronic kidney disease; D63.1 Anemia in chronic kidney disease; N18.30 Chronic kidney disease, stage 3 unspecified; G47.33 Obstructive sleep apnea (adult) (pediatric); R00.1 Bradycardia, unspecified; E66.01 Morbid (severe) obesity due to excess calories; Z86.711 Personal history of pulmonary embolism; Z79.01 Long term (current) use of anticoagulants; Z91.09 Other allergy status, other than to drugs and biological substances; Z79.899 Other long term (current) drug therapy; Z79.4 Long term (current) use of insulin; Z95.1 Presence of aortocoronary bypass graft; Z90.89 Acquired absence of other organs; Z98.890 Other specified postprocedural states; Z80.6 Family history of leukemia
CPT/HCPCS: 36415; 36416; 71045; 80048; 80053; 83690; 83735; 83880; 84484; 85025; 93005; 93306; J1650; J1815; J7050; U0003; U0005

== ENCOUNTER 2023-10-12 14:45 | Emergency (ER) | payer MEDICARE, OTHER ==
[2023-10-12] MEDS ORDERED: Dexamethasone 10 MG/ML VIAL ONE (16:18)
[2023-10-12 16:21] LABS: Bacteria/HPF None Seen HPF (None Seen); Bilirubin Negative (Negative); Blood, Urine Negative (Negative); CAUTI Indications for Culture Pelvic or flank pain; Clarity Clear (Clear); Glucose, Urine (Dipstick) Normal (Negative); Ketone, Urine Negative (Negative); Leukocyte Negative Leu/uL (Negative); Nitrite Negative (Negative); Protein, Urine (Dipstick) Negative (Neg-Trace); RBC/HPF None Seen HPF (0-3); Specific Gravity, Urine 1.012 (1.002-1.036); Squamous Epithelial None Seen HPF (0-3); Urobilinogen Normal mg/dL (Less than 2); WBC/HPF 0-3 HPF (0-3)
[2023-10-12] MEDS ORDERED: tiZANidine HCl 4 MG TAB ONE (16:21)
[2023-10-12 16:27] LABS: Urine Culture Reflex No No
== END 2023-10-12 16:34 | disposition home or self-care (01) ==
LOC: ERS 14:45
DX: S39.012A Strain of muscle, fascia and tendon of lower back, initial encounter (principal); I25.10 Atherosclerotic heart disease of native coronary artery without angina pectoris; E78.00 Pure hypercholesterolemia, unspecified; I12.9 Hypertensive chronic kidney disease with stage 1 through stage 4 chronic kidney disease, or unspecified chronic kidney disease; E11.22 Type 2 diabetes mellitus with diabetic chronic kidney disease; N18.4 Chronic kidney disease, stage 4 (severe); Z79.899 Other long term (current) drug therapy; Z79.82 Long term (current) use of aspirin; X58.XXXA Exposure to other specified factors, initial encounter
CPT/HCPCS: 81001; 99283; J1100